=== PATIENT | female | born 1950 | race Caucasian/White ===

== ENCOUNTER 2018-03-29 23:12 | Emergency (ER) | payer SELFPAY ==
[~2018-03-29 23:12] MED LIST changes: -OMEP-137 PO; -PRED-1 PO
[2018-03-29] MEDS ORDERED: OMEP-137 PO (23:21)
[2018-03-29] MEDS ORDERED: LORazepam 2 MG/ML VIAL IVP ONE ×2 (23:25)
--- NOTE | 2018-03-29 23:55 | EKG ---
FACILITY: [facility] PATIENT NAME: EMMA CABRERA : [id number] MR: [id number] V: [id number] EXAM DATE: ORDERING PHYSICIAN: CUCO BOSWELL TECHNOLOGIST: NABILA Test Reason : DYSPNEA Blood Pressure : / mmHG Vent. Rate : 083 BPM Atrial Rate : 083 BPM P-R Int : 148 ms QRS Dur : 100 ms QT Int : 404 ms P-R-T Axes : 007 140 029 degrees QTc Int : 474 ms Normal sinus rhythm Incomplete right bundle branch block Nonspecific ST abnormality Abnormal ECG When compared with ECG of 01-SEP-2016 11:33, No significant change was found Confirmed by Scooter Salcido ([id number]) on 03/30/2018 6:40:39 AM Referred By: Confirmed By:Scooter Hernandez
[2018-03-30 00:20] LABS: PLATELET COUNT, AUTOMATED 231 K/uL (150-450)
--- NOTE | 2018-03-30 00:20 | ER Report ---
History and Physical Time Seen By MD: 23:12 Hx. of Stated Complaint: PATIENT STATES SHE WAS HAVING A DIFFICULT TIME BREATHING WITH HOT FLASHES AND TREMORS HPI/ROS CHIEF COMPLAINT: Tremor and shaking sudden onset 3 hours prior to arrival, difficulty breathing HISTORY OF PRESENT ILLNESS: 67-year-old female brought in by EMS from home with difficulty breathing. She has obvious tremor of both of her upper extremities. Patient has no significant past medical history. Patient denies chest pain. She denies fever, chills or productive cough. She denies leg swelling or calf pain. Patient denies nausea or vomiting. Patient denies history of anxiety or panic attack. REVIEW OF SYSTEMS: Respiratory: As above Cardiovascular: No chest pain, no palpitations. Gastrointestinal: No vomiting, no abdominal pain. Musculoskeletal: No back pain. Allergies: Coded Allergies: Shellfish (Verified Allergy, Severe, THROAT SWELLING, EYE SWELLING, DIFFICULTY BREATHING, NAUSEA, 03/30/18) aspirin (Verified Allergy, Mild, NAUSEA, 03/30/18) Uncoded Allergies: POLIO VACCINE (Allergy, Intermediate, FEVER, NECK & ARM SWELLING, NAUSEA, 04/05/09) Home Meds Active Scripts Prednisone 10 Mg Tab (PREDNISONE 10 MG TAB) 10 Mg Tablet, 10 MG PO QDAY PRN for reduce lung inflammation, #9 2 tabs daily for 3 days 1 tab daily for 3 days Prov:CUCO BOSWELL DO 03/30/18 Reported Medications Omeprazole (OMEPRAZOLE) 20 Mg Tablet.dr, 20 MG PO QDAY, TAB 03/29/18 Discontinued Scripts Amoxicillin/Pot Clav 875-125 Mg Tab (AUGMENTIN 875-125 TABLET) 1 Each Tablet, 1 TAB PO Q12H for 10 Days, TAB Prov:ANDREWS SWANSON NP 09/01/16 Past Medical/Surgical History Occasional GERD Hx Smoking: Yes Smoking Status: Former Smoker Exposure to Second Hand Smoke?: No Hx Substance Use Disorder: No Hx Alcohol Use: No Constitutional Vital Sign - Last 24 Hours 03/29/18 03/29/18 03/29/18 03/29/18 23:12 23:15 23:30 23:32 Temp 98.5 Pulse 87 Resp 20 B/P (MAP) 168/149 (155) 132/49 (76) Pulse Ox 91 O2 Delivery Nasal Cannula O2 Flow Rate 2.0 03/29/18 03/30/18 23:42 00:58 Pulse 83 85 Resp 16 B/P (MAP) 132/82 (99) Pulse Ox 91 95 O2 Delivery Room Air Physical Exam Vital signs stable, afebrile, pulse ox 88-89% on room air, requiring 2 L to maintain saturations in the low 90s General Appearance: The patient is alert, has no immediate need for airway protection and no current signs of toxicity. Mild distress, repetitive tremor in upper extremities HEENT: Pupils equal and round no injection. TMs normal, oropharynx with mild erythema, no exudate or petechiae Respiratory: Chest is non tender, lungs are clear to auscultation. No expiratory wheezing. Rales or rhonchi noted Cardiac: regular rate and rhythm Gastrointestinal: Abdomen is soft and non tender, no masses, bowel sounds normal. Musculoskeletal: Neck: Neck is supple and non tender. No lymphadenopathy, no JVD Extremities have full range of motion and are non tender. No edema, no calf tenderness Skin: No rashes or lesions. DIFFERENTIAL DIAGNOSIS: After history and physical exam differential diagnosis was considered for shortness of breath including but not limited to pulmonary infectious process, COPD, asthma, pulmonary embolus and congestive heart failure. Medical Decision Making Data Points Result Diagram: 03/30/18 0003 03/30/18 0003 Laboratory Hematology Test 03/30/18 00:03 Red Blood Count 5.10 M/uL (4.17-5.56) Mean Corpuscular Volume 90.9 fL (80.0-96.0) Mean Corpuscular Hemoglobin 30.6 pg (26.0-33.0) Mean Corpuscular Hemoglobin Concent 33.7 g/dL (32.0-36.0) Red Cell Distribution Width 13.5 % (11.5-14.5) Mean Platelet Volume 8.4 fL (7.2-11.1) Neutrophils (%) (Auto) 63.7 % (39.4-72.5) Lymphocytes (%) (Auto) 26.3 % (17.6-49.6) Monocytes (%) (Auto) 7.2 % (4.1-12.4) Eosinophils (%) (Auto) 2.0 % (0.4-6.7) Basophils (%) (Auto) 0.8 % (0.3-1.4) Nucleated RBC Relative Count (auto) 0.0 /100WBC Neutrophils # (Auto) 4.8 K/uL (2.0-7.4) Lymphocytes # (Auto) 2.0 K/uL (1.3-3.6) Monocytes # (Auto) 0.5 K/uL (0.3-1.0) Eosinophils # (Auto) 0.1 K/uL (0.0-0.5) Basophils # (Auto) 0.1 K/uL (0.0-0.1) Nucleated RBC Absolute Count (auto) 0.00 K/uL D-Dimer Quantitative (PE/DVT) 0.32 ug/ml (0-0.50) Sodium Level 137 mmol/L (137-145) Potassium Level 3.6 mmol/L (3.5-5.0) Chloride Level 105 mmol/L (98-107) Carbon Dioxide Level 22 mmol/L (22-31) Blood Urea Nitrogen 16 mg/dl (7-18) Creatinine 0.90 mg/dl (0.52-1.04) Glomerular Filtration Rate Calc > 60.0 Random Glucose 118 mg/dl (75-110) Lactate 1.3 mmol/L (0.7-2.1) Calcium Level 9.8 mg/dl (8.4-10.2) Total Bilirubin 0.7 mg/dl (0.2-1.3) Aspartate Amino Transf (AST/SGOT) 21 U/L (0-35) Alanine Aminotransferase (ALT/SGPT) 31 U/L (0-56) Alkaline Phosphatase 87 U/L (0-126) Troponin I < 0.012 ng/ml B-Type Natriuretic Peptide < 5 pg/ml (0-100) Total Protein 6.9 g/dl (6.3-8.2) Albumin 3.7 g/dl (3.5-5.0) Chemistry Test 03/30/18 00:03 White Blood Count 7.6 k/uL (4.5-11.0) Red Blood Count 5.10 M/uL (4.17-5.56) Hemoglobin 15.6 g/dL (12.0-16.0) Hematocrit 46.3 % (34.0-47.0) Mean Corpuscular Volume 90.9 fL (80.0-96.0) Mean Corpuscular Hemoglobin 30.6 pg (26.0-33.0) Mean Corpuscular Hemoglobin Concent 33.7 g/dL (32.0-36.0) Red Cell Distribution Width 13.5 % (11.5-14.5) Platelet Count 231 K/uL (150-450) Mean Platelet Volume 8.4 fL (7.2-11.1) Neutrophils (%) (Auto) 63.7 % (39.4-72.5) Lymphocytes (%) (Auto) 26.3 % (17.6-49.6) Monocytes (%) (Auto) 7.2 % (4.1-12.4) Eosinophils (%) (Auto) 2.0 % (0.4-6.7) Basophils (%) (Auto) 0.8 % (0.3-1.4) Nucleated RBC Relative Count (auto) 0.0 /100WBC Neutrophils # (Auto) 4.8 K/uL (2.0-7.4) Lymphocytes # (Auto) 2.0 K/uL (1.3-3.6) Monocytes # (Auto) 0.5 K/uL (0.3-1.0) Eosinophils # (Auto) 0.1 K/uL (0.0-0.5) Basophils # (Auto) 0.1 K/uL (0.0-0.1) Nucleated RBC Absolute Count (auto) 0.00 K/uL D-Dimer Quantitative (PE/DVT) 0.32 ug/ml (0-0.50) Glomerular Filtration Rate Calc > 60.0 Lactate 1.3 mmol/L (0.7-2.1) Calcium Level 9.8 mg/dl (8.4-10.2) Total Bilirubin 0.7 mg/dl (0.2-1.3) Aspartate Amino Transf (AST/SGOT) 21 U/L (0-35) Alanine Aminotransferase (ALT/SGPT) 31 U/L (0-56) Alkaline Phosphatase 87 U/L (0-126) Troponin I < 0.012 ng/ml B-Type Natriuretic Peptide < 5 pg/ml (0-100) Total Protein 6.9 g/dl (6.3-8.2) Albumin 3.7 g/dl (3.5-5.0) Coagulation Test 03/30/18 00:03 D-Dimer Quantitative (PE/DVT) 0.32 ug/ml EKG/Imaging EKG Interpretation 12 lead EK Rhythm: normal sinus rhythm [place]: normal QRS: Incomplete right bundle branch block with RVH ST segments: Nonspecific ST abnormality, comparison to previous EKG dated 09/01/16, no significant change Imaging X-ray: Two-view chest x-ray was obtained. I viewed the images myself on the PACS system. My interpretation of the images is: No infiltrate, no effusion, normal mediastinum. The radiologist interpretation had no clinically significant variation from this interpretation. ED Course/Re-evaluation Clinical Indication for ER IV: IV Access ED Course Patient was admitted to an examination room. H&P was done. The differential diagnoses was considered. On clinical examination present with shortness of breath. She's better after nebulizer treatment in route by EMS. On arrival. She has continues to have tremor and shaking. Her EKG and diagnostic studies are unremarkable. She's given Ativan for her anxiety. Her tremor stops and she feels much better. She's discharged home and advised to follow-up with her primary care physician. Patient states she is unable to afford primary care physician or insurance. It cost too much. Decision to Disposition Date: Mar 30, 2018 Decision to Disposition Time: 00:50 Depart Departure Latest Vital Signs Vital Signs Date Time Temp Pulse Resp B/P (MAP) Pulse Ox O2 Delivery O2 Flow Rate FiO2 03/30/18 00:58 85 16 132/82 (99) 95 Room Air 03/29/18 23:32 2.0 03/29/18 23:12 98.5 Impression: Primary Impression: Dyspnea Additional Impression: Anxiety Condition: Improved Disposition: HOME OR SELF-CARE Referrals: JOHNNIE SHANE MD, FARRUKH MD Patient Instructions: Anxiety (ED), Dyspnea (ED) Additional Instructions: Follow-up with primary care if unimproved in 2-5 days Problem Qualifiers Primary Impression: Dyspnea Dyspnea type: unspecified Qualified Codes: R06.00 - Dyspnea, unspecified CUCO BOSWELL DO Mar 30, 2018 00:20
--- NOTE | 2018-03-30 00:52 | RADIOLOGY IMAGING REPORT ---
FACILITY: [facility] - [place] PATIENT NAME: Michelle Head : 1950 MR: [id number] V: [id number] EXAM DATE: ORDERING PHYSICIAN: CUCO BOSWELL TECHNOLOGIST: Location: [facility] - [place] Patient: Michelle Head : 1950 Visit/Account:[id number] Date of Sevice: 03/29/2018 CHEST PA AND LAT HISTORY: Respiratory distress. COMPARISON: 09/01/2016. FINDINGS: Lines/tubes: None. Lungs/pleura: Negative. Heart: Negative. Mediastinum: Negative. Bony structures/body wall: Negative. IMPRESSION: No acute cardiopulmonary process. Report Dictated By: Quan Leonardo MD at 03/30/2018 12:46 AM Report E-Signed By: Quan Leonardo MD at 03/30/2018 12:48 AM WSN:[id number]
[2018-03-30 00:58] VITALS: BP 132/82
[2018-03-30] MEDS ORDERED: PRED-1 PO (20:35)
== END 2018-03-30 01:30 | disposition home or self-care (01) ==
LOC: ER 23:54
DX: R06.00 Dyspnea, unspecified (principal); F41.9 Anxiety disorder, unspecified; R94.31 Abnormal electrocardiogram [ECG] [EKG]
CPT/HCPCS: 36415; 71046; 83605; 83880; 84484; 85025; 85379; 93005; 96374; 99284; J2060; 82040; 82247; 82310; 82374; 82435; 82565; 82947; 84075; 84132; 84155; 84295; 84450; 84460; 84520

== ENCOUNTER → 2018-03-29 | Outpatient (CLI) | payer SELFPAY ==
[~2018-03-29] MED LIST: ACE325 PO; ALB17R INH; AMOX-559 PO; AZI250 PO; CYCL10TA29 PO; OMEP-137 PO; OMEP40CA45 PO; OXYC-865 PO; PRE20 PO; PRED-1 PO; PROC5L PO; ROBC PO
== END ==
LOC: AMB 22:49
PROVIDERS: ATTEND Nurse Practitioner
DX: R06.02 Shortness of breath (principal); R25.1 Tremor, unspecified
CPT/HCPCS: A0425; A0427

== ENCOUNTER 2018-03-30 19:16 | Emergency (ER) | payer SELFPAY ==
[~2018-03-30 19:16] MED LIST changes: -PRED-1 PO
--- NOTE | 2018-03-30 19:23 | ER Report ---
History and Physical Time Seen By MD: 19:23 HPI/ROS CHIEF COMPLAINT: Shortness of breath, history of asthma HISTORY OF PRESENT ILLNESS: 67-year-old female brought in by EMS from home with respiratory difficulty. Patient states she has a history of asthma. She was seen here approximately 24 hours ago with similar symptoms. At that time an e xtensive workup was done with a negative chest x-ray, EKG, d-dimer and troponin, as well as BMP. She was improved after nebulizer by EMS in route. Her lungs are clear to auscultation. Her saturations were normal. Patient states she went home and did fine throughout the day. She became more short of breath this evening. She has an inhaler. She attempted using without improvement. She called EMS to come pick her up. She received 2 albuterol nebs in route is breathing fine on arrival here. EMS on arrival notes that her saturation was in the low 90s. She has tremors of her arms consistent with anxiety or panic attack from her last presentation. She notes she has a little dry cough but no production of sputum or fever. She notes no rhinitis. She notes no sore throat. She notes no chest pain. She notes no leg swelling other than she notes some mild swelling of her right ankle which is chronic for her. REVIEW OF SYSTEMS: Respiratory: As above Cardiovascular: No chest pain, no palpitations. Gastrointestinal: No vomiting, no abdominal pain. Musculoskeletal: No back pain. Allergies: Coded Allergies: Shellfish (Verified Allergy, Severe, THROAT SWELLING, EYE SWELLING, DIFFICULTY BREATHING, NAUSEA, 03/30/18) aspirin (Verified Allergy, Mild, NAUSEA, 03/30/18) Uncoded Allergies: POLIO VACCINE (Allergy, Intermediate, FEVER, NECK & ARM SWELLING, NAUSEA, 04/05/09) Home Meds Active Scripts Prednisone 10 Mg Tab (PREDNISONE 10 MG TAB) 10 Mg Tablet, 10 MG PO QDAY PRN for reduce lung inflammation, #9 2 tabs daily for 3 days 1 tab daily for 3 days Prov:CUCO BOSWELL DO 03/30/18 Reported Medications Omeprazole (OMEPRAZOLE) 20 Mg Tablet.dr, 20 MG PO QDAY, TAB 03/29/18 Discontinued Scripts Amoxicillin/Pot Clav 875-125 Mg Tab (AUGMENTIN 875-125 TABLET) 1 Each Tablet, 1 TAB PO Q12H for 10 Days, TAB Prov:ANDREWS SWANSON NP 09/01/16 Past Medical/Surgical History Past medical history: GERD, asthma. Past surgical history: Hysterectomy. Reviewed Nurses Notes: Yes Old Medical Records Reviewed: Yes Hx Smoking: Yes Smoking Status: Former Smoker Exposure to Second Hand Smoke?: No Hx Substance Use Disorder: No Hx Alcohol Use: No Constitutional Vital Sign - Last 24 Hours 03/30/18 03/30/18 03/30/18 03/30/18 19:21 19:21 19:30 19:31 Temp 97.5 Pulse 101 101 Resp 20 14 B/P (MAP) 146/85 146/85 (105) 128/66 (86) Pulse Ox 96 92 O2 Delivery Room Air 03/30/18 03/30/18 03/30/18 03/30/18 19:46 20:00 20:01 20:16 Pulse 105 100 86 Resp 11 5 15 B/P (MAP) 118/76 (90) Pulse Ox 89 87 92 03/30/18 03/30/18 03/30/18 20:30 20:31 20:46 Pulse 90 88 Resp 17 13 B/P (MAP) 131/70 (90) Pulse Ox 90 90 Physical Exam General Appearance: The patient is alert, has no immediate need for airway protection and no current signs of toxicity. Vital signs stable, afebrile, pulse ox normal HEENT: Pupils equal and round no injection. TMs normal, oropharynx with mild erythema, no exudate or petechiae Respiratory: Chest is non tender, lungs are clear to auscultation. No wheezing or rales after albuterol nebs 2 by EMS Cardiac: regular rate and rhythm, no murmur Gastrointestinal: Abdomen is soft and non tender, no masses, bowel sounds normal. Musculoskeletal: Neck: Neck is supple and non tender. No lymphadenopathy, no JVD Extremities have full range of motion and are non tender. Skin: No rashes or lesions. DIFFERENTIAL DIAGNOSIS: After history and physical exam differential diagnosis was considered for shortness of breath including but not limited to pulmonary infectious process, COPD, asthma, pulmonary embolus and congestive heart fa ilure. Medical Decision Making Data Points Result Diagram: 03/30/18192703/30/181927 Laboratory Hematology Test 03/30/18 19:28 Red Blood Count 5.22 M/uL (4.17-5.56) Mean Corpuscular Volume 90.6 fL (80.0-96.0) Mean Corpuscular Hemoglobin 31.0 pg (26.0-33.0) Mean Corpuscular Hemoglobin Concent 34.2 g/dL (32.0-36.0) Red Cell Distribution Width 13.5 % (11.5-14.5) Mean Platelet Volume 8.6 fL (7.2-11.1) Neutrophils (%) (Auto) 62.8 % (39.4-72.5) Lymphocytes (%) (Auto) 26.2 % (17.6-49.6) Monocytes (%) (Auto) 7.8 % (4.1-12.4) Eosinophils (%) (Auto) 2.0 % (0.4-6.7) Basophils (%) (Auto) 1.2 % (0.3-1.4) Nucleated RBC Relative Count (auto) 0.1 /100WBC Neutrophils # (Auto) 5.2 K/uL (2.0-7.4) Lymphocytes # (Auto) 2.2 K/uL (1.3-3.6) Monocytes # (Auto) 0.7 K/uL (0.3-1.0) Eosinophils # (Auto) 0.2 K/uL (0.0-0.5) Basophils # (Auto) 0.1 K/uL (0.0-0.1) Nucleated RBC Absolute Count (auto) 0.01 K/uL D-Dimer Quantitative (PE/DVT) 0.39 ug/ml (0-0.50) Sodium Level 137 mmol/L (137-145) Potassium Level 3.8 mmol/L (3.5-5.0) Chloride Level 106 mmol/L (98-107) Carbon Dioxide Level 23 mmol/L (22-31) Blood Urea Nitrogen 17 mg/dl (7-18) Creatinine 1.10 mg/dl (0.52-1.04) Glomerular Filtration Rate Calc 49.2 Random Glucose 130 mg/dl (75-110) Calcium Level 9.9 mg/dl (8.4-10.2) Total Bilirubin 0.7 mg/dl (0.2-1.3) Aspartate Amino Transf (AST/SGOT) 24 U/L (0-35) Alanine Aminotransferase (ALT/SGPT) 30 U/L (0-56) Alkaline Phosphatase 93 U/L (0-126) Troponin I < 0.012 ng/ml B-Type Natriuretic Peptide 9 pg/ml (0-100) Total Protein 7.3 g/dl (6.3-8.2) Albumin 4.0 g/dl (3.5-5.0) Chemistry Test 03/30/18 19:28 White Blood Count 8.3 k/uL (4.5-11.0) Red Blood Count 5.22 M/uL (4.17-5.56) Hemoglobin 16.2 g/dL (12.0-16.0) Hematocrit 47.3 % (34.0-47.0) Mean Corpuscular Volume 90.6 fL (80.0-96.0) Mean Corpuscular Hemoglobin 31.0 pg (26.0-33.0) Mean Corpuscular Hemoglobin Concent 34.2 g/dL (32.0-36.0) Red Cell Distribution Width 13.5 % (11.5-14.5) Platelet Count 245 K/uL (150-450) Mean Platelet Volume 8.6 fL (7.2-11.1) Neutrophils (%) (Auto) 62.8 % (39.4-72.5) Lymphocytes (%) (Auto) 26.2 % (17.6-49.6) Monocytes (%) (Auto) 7.8 % (4.1-12.4) Eosinophils (%) (Auto) 2.0 % (0.4-6.7) Basophils (%) (Auto) 1.2 % (0.3-1.4) Nucleated RBC Relative Count (auto) 0.1 /100WBC Neutrophils # (Auto) 5.2 K/uL (2.0-7.4) Lymphocytes # (Auto) 2.2 K/uL (1.3-3.6) Monocytes # (Auto) 0.7 K/uL (0.3-1.0) Eosinophils # (Auto) 0.2 K/uL (0.0-0.5) Basophils # (Auto) 0.1 K/uL (0.0-0.1) Nucleated RBC Absolute Count (auto) 0.01 K/uL D-Dimer Quantitative (PE/DVT) 0.39 ug/ml (0-0.50) Glomerular Filtration Rate Calc 49.2 Calcium Level 9.9 mg/dl (8.4-10.2) Total Bilirubin 0.7 mg/dl (0.2-1.3) Aspartate Amino Transf (AST/SGOT) 24 U/L (0-35) Alanine Aminotransferase (ALT/SGPT) 30 U/L (0-56) Alkaline Phosphatase 93 U/L (0-126) Troponin I < 0.012 ng/ml B-Type Natriuretic Peptide 9 pg/ml (0-100) Total Protein 7.3 g/dl (6.3-8.2) Albumin 4.0 g/dl (3.5-5.0) Coagulation Test 03/30/18 19:28 D-Dimer Quantitative (PE/DVT) 0.39 ug/ml EKG/Imaging EKG Interpretation 12 lead EK Rhythm: normal sinus rhythm with right bundle branch block [place]: normal QRS: normal ST segments: Nonspecific ST segment and round. No change when compared with previous EKGs dated 03/29/18 and 09/01/16 Imaging X-ray: Single view chest x-ray was obtained. I viewed the images myself on the PACS system. My interpretation of the images is: No infiltrate, no effusion, normal mediastinum. The radiologist interpretation had no clinically sign ificant variation from this interpretation. ED Course/Re-evaluation Clinical Indication for ER IV: IV Access ED Course Patient was admitted to an examination room. H&P was done. The differential diagnoses was considered. Patient with similar presentation to last evening. She does have a component of anxiety. I think she has reactive airways disease. It is probably triggered by her GERD. She'll be discharged home with a refill inhaler and a prednisone taper. She is advised to follow-up with her primary care if unimproved in 3-5 days. Decision to Disposition Date: Mar 30, 2018 Decision to Disposition Time: 20:30 Depart Departure Latest Vital Signs Vital Signs Date Time Temp Pulse Resp B/P (MAP) Pulse Ox O2 Delivery O2 Flow Rate FiO2 03/30/18 20:46 88 13 90 03/30/18 20:30 131/70 (90) 03/30/18 19:21 97.5 Room Air Impression: Primary Impression: Asthma exacerbation Additional Impressions: Dyspnea History of gastroesophageal reflux (GERD) Condition: Improved Disposition: HOME OR SELF-CARE Referrals: JOHNNIE SHANE MD, FARRUKH MD New Scripts Prednisone 10 Mg Tab (PREDNISONE 10 MG TAB) 10 Mg Tablet 10 MG PO QDAY PRN for reduce lung inflammation, #9 2 tabs daily for 3 days 1 tab daily for 3 days Prov: CUCO BOSWELL DO 03/30/18 Patient Instructions: Asthma (ED) Additional Instructions: Follow-up with your primary care if unimproved in 2-3 days Problem Qualifiers Primary Impression: Asthma exacerbation Asthma severity: mild Asthma persistence: intermittent Qualified Codes: J45.21 - Mild intermittent asthma with (acute) exacerbation Additional Impressions: Dyspnea Dyspnea type: unspecified Qualified Codes: R06.00 - Dyspnea, unspecified CUCO BOSWELL DO Mar 30, 2018 19:23
[2018-03-30] MEDS ORDERED: methylPREDNIS SUCC 125 MG/2ML IVP ONE (19:25)
[2018-03-30 19:45] LABS: PLATELET COUNT, AUTOMATED 245 K/uL (150-450)
[2018-03-30 20:30] VITALS: BP 131/70
[2018-03-30] MEDS ORDERED: ALBUTEROL 8 GM INHALER INH ONE (20:30)
--- NOTE | 2018-03-30 20:30 | RADIOLOGY IMAGING REPORT ---
FACILITY: [facility] - [place] PATIENT NAME: Michelle Head : 1950 MR: [id number] V: [id number] EXAM DATE: ORDERING PHYSICIAN: CUCO BOSWELL TECHNOLOGIST: Location: [facility] - [place] Patient: Michelle Head : 1950 Visit/Account:[id number] Date of Sevice: 03/30/2018 Examination: CHEST SINGLE AP Comparison: Earlier the same day. History: Respiratory distress. Findings: Mild prominence of the interstitial markings as on the prior studies. No new or enlarging c onsolidation or definite evidence of acute peribronchial inflammation. No pneumothorax, edema, or eff usion. Cardiac and hilar contour size is normal. Osseous structures are intact. IMPRESSION: Unchanged chest with no evidence of acute cardiopulmonary disease. Report Dictated By: Ronal White MD at 03/30/2018 8:18 PM Report E-Signed By: Ronal White MD at 03/30/2018 8:26 PM [id number]
[2018-03-30] MEDS ORDERED: PRED-1 PO (20:35)
--- NOTE | 2018-03-30 20:39 | EKG ---
FACILITY: [facility] PATIENT NAME: EMMA CABRERA : [id number] MR: [id number] V: [id number] EXAM DATE: ORDERING PHYSICIAN: CUCO BOSWELL TECHNOLOGIST: NABILA Test Reason : DYSPNEA Blood Pressure : / mmHG Vent. Rate : 108 BPM Atrial Rate : 108 BPM P-R Int : 150 ms QRS Dur : 090 ms QT Int : 364 ms P-R-T Axes : 052 198 052 degrees QTc Int : 487 ms Sinus tachycardia with premature atrial complexes Incomplete RBBB Nonspecific ST abnormality Abnormal ECG Confirmed by LISE WYNNE ([id number]) on 03/31/2018 6:00:08 AM Referred By: Confirmed By:LISE WYNNE
== END 2018-03-30 20:54 | disposition home or self-care (01) ==
LOC: ER 19:23
DX: J45.21 Mild intermittent asthma with (acute) exacerbation (principal); K21.9 Gastro-esophageal reflux disease without esophagitis
CPT/HCPCS: 71045; 83880; 84484; 85025; 85379; 93005; 94640; 96374; 99283; J2930; J3535; 82040; 82247; 82310; 82374; 82435; 82565; 82947; 84075; 84132; 84155; 84295; 84450; 84460; 84520

== ENCOUNTER → 2018-03-30 | Outpatient (CLI) | payer SELFPAY ==
[~2018-03-30] MED LIST changes: +OMEP-137 PO; +PRED-1 PO
== END ==
LOC: AMB 18:52
PROVIDERS: ATTEND Nurse Practitioner
DX: R06.02 Shortness of breath (principal); R51 Headache; R53.1 Weakness
CPT/HCPCS: A0425; A0427

== ENCOUNTER 2018-06-09 21:02 | Inpatient (IN) | payer MEDICARE ==
[~2018-06-09] VITALS: Ht 160 cm; Wt 125.2 kg
[~2018-06-09 21:02] MED LIST changes: -OSE75 PO
--- NOTE | 2018-06-09 21:09 | ER Report ---
History and Physical Time Seen By MD: 21:09 HPI/ROS CHIEF COMPLAINT: weakness, fall HISTORY OF PRESENT ILLNESS: This is a 67 year old female. She has not been feeling well since (4 days) when she developed a cough. She has bee coughing since then, but does not seem worse. Took some cough medicine over the counter over the last few days which has helped. She is a little short of breath. No runny nose or sore throat. She has been very weak and fatigued. Today slept most of the day. Poor appetite with nausea. No abdominal pain. Slight decrease in urination, but no pain with urination. No diarrhea or bowel changes. Trying to drink increased fluids. She was sitting on the edge of her bed and was going to come to the ER, but slid off the bed and hit her head on the bedside table. Did not lose consciousness, hit the left parietal area. Has some neck pain. EMS found her to be hypoxic, and placer her on oxygen, 2LNC and sating 90% now. REVIEW OF SYSTEMS: Constitutional: Having some chills. Eyes: No vision changes. ENT: No sore throat. No congestion. Cardiovascular: No chest pain. Respiratory: As above. Gastrointestinal: As above. Genitourinary: As above. Musculoskeletal: Has some muscle aches. Skin: No rashes. Neurological: Has been having slow chronic increase in tremors. Allergies: Coded Allergies: Shellfish (Verified Allergy, Severe, THROAT SWELLING, EYE SWELLING, DIFFICULTY BREATHING, NAUSEA, 06/09/18) aspirin (Verified Allergy, Mild, NAUSEA, 06/09/18) Uncoded Allergies: POLIO VACCINE (Allergy, Intermediate, FEVER, NECK & ARM SWELLING, NAUSEA, 04/05/09) Home Meds Discontinued Reported Medications Omeprazole (OMEPRAZOLE) 20 Mg Tablet.dr, 20 MG PO QDAY, TAB 03/29/18 Discontinued Scripts Prednisone 10 Mg Tab (PREDNISONE 10 MG TAB) 10 Mg Tablet, 10 MG PO QDAY PRN for reduce lung inflammation, #9 2 tabs daily for 3 days 1 tab daily for 3 days Prov:CUCO BOSWELL DO 03/30/18 Reviewed Nurses Notes: Yes Hx Smoking: Yes Smoking Status: Former Smoker Exposure to Second Hand Smoke?: No Hx Substance Use Disorder: No Hx Alcohol Use: No Constitutional Vital Sign - Last 24 Hours 06/09/18 06/09/18 06/09/18 06/09/18 21:02 21:04 21:05 21:17 Temp 100.5 Pulse ??? 84 93 Resp 19 B/P (MAP) 125/72 125/72 (89) Pulse Ox 93 93 O2 Delivery Nasal Cannula 06/09/18 06/09/18 06/09/18 06/09/18 21:27 21:30 21:32 21:47 Pulse 81 ??? Resp 13 B/P (MAP) 97/44 (61) Pulse Ox 90 O2 Flow Rate 2.0 06/09/18 06/09/18 06/09/18 06/09/18 22:00 22:02 22:17 22:32 Pulse 87 87 80 Resp 23 31 B/P (MAP) 105/68 (80) Pulse Ox 86 87 89 06/09/18 06/09/18 06/09/18 06/09/18 22:47 22:51 22:56 23:00 Pulse ??? 83 Resp 14 B/P (MAP) 105/49 (67) ???/??? (1665) Pulse Ox 89 06/09/18 06/09/18 06/09/18 06/09/18 23:11 23:24 23:26 23:30 Pulse ??? 78 Resp 19 B/P (MAP) 114/64 (81) 118/56 (76) Pulse Ox 91 06/09/18 06/09/18 06/10/18 06/10/18 23:41 23:56 00:00 00:11 Pulse 78 78 78 Resp 22 28 15 B/P (MAP) 113/61 (78) Pulse Ox 92 90 87 06/10/18 06/10/18 06/10/18 06/10/18 00:26 00:31 00:46 01:00 Pulse 73 78 84 Resp 6 26 10 B/P (MAP) 97/57 (70) Pulse Ox 88 89 86 06/10/18 06/10/18 06/10/18 06/10/18 01:01 01:16 01:30 01:31 Pulse 81 75 75 Resp 29 27 30 B/P (MAP) 106/37 (60) Pulse Ox 91 90 90 Intake and Output0 06/09/18 06/09/18 06/10/18 15:00 23:00 07:00 Intake Total 1000 ml Balance 1000 ml Physical Exam General Appearance: The patient is alert. No acute distress. Eyes: Pupils are equal, round. No pallor, injection or icterus. ENT: Mucous membranes are dry. Normal oral mucosa. Posterior oropharynx is normal. Neck: Supple, some anterior neck tenderness. Cervical collar in place. Respiratory: Lungs diminished throughout. No wheezing, rales or rhonchi noted. Cardiovascular: Regular rate and rhythm. No murmurs, gallops or rubs. Normal capillary refill. Gastrointestinal: Abdomen is soft and non tender. Nondistended. Normal active bowel sounds. Neurological: Alert and oriented x3. No focal neurologic deficits. Having some tremors intermittently. Generalized weakness. Skin: Warm and dry. Musculoskeletal: Extremities are nontender. No tenderness in palpation of the cervical, thoracic and lumbar spine. DIFFERENTIAL DIAGNOSIS: After history and physical exam, differential diagnosis was considered for a patient with diffuse symptoms that started with cough, now with significant weakness, short of breath, hypoxia, and some nausea. Fall with head and neck pain. Medical Decision Making Data Points Result Diagram: 06/09/18210206/09/182102 Laboratory Hematology Test 06/09/18 21:03 06/09/18 21:13 06/09/18 22:54 Red Blood Count 5.22 M/uL (4.17-5.56) Mean Corpuscular Volume 90.2 fL (80.0-96.0) Mean Corpuscular Hemoglobin 30.7 pg (26.0-33.0) Mean Corpuscular Hemoglobin Concent 34.0 g/dL (32.0-36.0) Red Cell Distribution Width 13.6 % (11.5-14.5) Mean Platelet Volume 9.0 fL (7.2-11.1) Neutrophils (%) (Auto) 76.2 % (39.4-72.5) Lymphocytes (%) (Auto) 12.4 % (17.6-49.6) Monocytes (%) (Auto) 10.9 % (4.1-12.4) Eosinophils (%) (Auto) 0.1 % (0.4-6.7) Basophils (%) (Auto) 0.4 % (0.3-1.4) Nucleated RBC Relative Count (auto) 0.4 /100WBC Neutrophils # (Auto) 2.6 K/uL (2.0-7.4) Lymphocytes # (Auto) 0.4 K/uL (1.3-3.6) Monocytes # (Auto) 0.4 K/uL (0.3-1.0) Eosinophils # (Auto) 0.0 K/uL (0.0-0.5) Basophils # (Auto) 0.0 K/uL (0.0-0.1) Nucleated RBC Absolute Count (auto) 0.01 K/uL D-Dimer Quantitative (PE/DVT) 0.76 ug/ml (0-0.50) Sodium Level 133 mmol/L (137-145) Potassium Level 3.8 mmol/L (3.5-5.0) Chloride Level 106 mmol/L (98-107) Carbon Dioxide Level 20 mmol/L (22-31) Blood Urea Nitrogen 15 mg/dl (7-18) Creatinine 1.30 mg/dl (0.52-1.04) Glomerular Filtration Rate Calc 40.6 Random Glucose 98 mg/dl (75-110) Lactate 1.0 mmol/L (0.7-2.1) Calcium Level 8.7 mg/dl (8.4-10.2) Magnesium Level 2.0 mg/dl (1.7-2.2) Total Bilirubin 0.6 mg/dl (0.2-1.3) Aspartate Amino Transf (AST/SGOT) 84 U/L (0-35) Alanine Aminotransferase (ALT/SGPT) 57 U/L (0-56) Alkaline Phosphatase 79 U/L (0-126) Troponin I < 0.012 ng/ml Total Protein 6.9 g/dl (6.3-8.2) Albumin 3.8 g/dl (3.5-5.0) Amylase Level 64 U/L (0-110) Lipase 198 U/L (23-300) Influenza Virus Type A (PCR) Positive (NEGATIVE) Influenza Virus Type B (PCR) Negative (NEGATIVE) Urine Color Yellow Urine Clarity Slightly-cloudy Urine pH 5.0 pH (4.8-9.5) Urine Specific [place] 1.015 Urine Protein Negative mg/dL (NEGATIVE) Urine Glucose (UA) Negative mg/dL (NEGATIVE) Urine Ketones Trace mg/dL (NEGATIVE) Urine Blood Negative (NEGATIVE) Urine Nitrite Negative (NEGATIVE) Urine Bilirubin Negative (NEGATIVE) Urine Urobilinogen Negative mg/dL (0.2-1.9) Urine Leukocyte Esterase Large (NEGATIVE) Urine RBC 2 /HPF (0-2/HPF) Urine WBC 19 /HPF (0-5/HPF) Urine Squamous Epithelial Cells Many /LPF (</=FEW) Urine Transitional Epithelial Cells Few /LPF (NONE-FEW) Urine Bacteria Negative /HPF (NONE-FEW) Urine Mucus None /HPF (NONE-FEW) Chemistry Test 06/09/18 21:03 06/09/18 21:13 06/09/18 22:54 White Blood Count 3.5 k/uL (4.5-11.0) Red Blood Count 5.22 M/uL (4.17-5.56) Hemoglobin 16.0 g/dL (12.0-16.0) Hematocrit 47.1 % (34.0-47.0) Mean Corpuscular Volume 90.2 fL (80.0-96.0) Mean Corpuscular Hemoglobin 30.7 pg (26.0-33.0) Mean Corpuscular Hemoglobin Concent 34.0 g/dL (32.0-36.0) Red Cell Distribution Width 13.6 % (11.5-14.5) Platelet Count 154 K/uL (150-450) Mean Platelet Volume 9.0 fL (7.2-11.1) Neutrophils (%) (Auto) 76.2 % (39.4-72.5) Lymphocytes (%) (Auto) 12.4 % (17.6-49.6) Monocytes (%) (Auto) 10.9 % (4.1-12.4) Eosinophils (%) (Auto) 0.1 % (0.4-6.7) Basophils (%) (Auto) 0.4 % (0.3-1.4) Nucleated RBC Relative Count (auto) 0.4 /100WBC Neutrophils # (Auto) 2.6 K/uL (2.0-7.4) Lymphocytes # (Auto) 0.4 K/uL (1.3-3.6) Monocytes # (Auto) 0.4 K/uL (0.3-1.0) Eosinophils # (Auto) 0.0 K/uL (0.0-0.5) Basophils # (Auto) 0.0 K/uL (0.0-0.1) Nucleated RBC Absolute Count (auto) 0.01 K/uL D-Dimer Quantitative (PE/DVT) 0.76 ug/ml (0-0.50) Glomerular Filtration Rate Calc 40.6 Lactate 1.0 mmol/L (0.7-2.1) Calcium Level 8.7 mg/dl (8.4-10.2) Magnesium Level 2.0 mg/dl (1.7-2.2) Total Bilirubin 0.6 mg/dl (0.2-1.3) Aspartate Amino Transf (AST/SGOT) 84 U/L (0-35) Alanine Aminotransferase (ALT/SGPT) 57 U/L (0-56) Alkaline Phosphatase 79 U/L (0-126) Troponin I < 0.012 ng/ml Total Protein 6.9 g/dl (6.3-8.2) Albumin 3.8 g/dl (3.5-5.0) Amylase Level 64 U/L (0-110) Lipase 198 U/L (23-300) Influenza Virus Type A (PCR) Positive (NEGATIVE) Influenza Virus Type B (PCR) Negative (NEGATIVE) Urine Color Yellow Urine Clarity Slightly-cloudy Urine pH 5.0 pH (4.8-9.5) Urine Specific [place] 1.015 Urine Protein Negative mg/dL (NEGATIVE) Urine Glucose (UA) Negative mg/dL (NEGATIVE) Urine Ketones Trace mg/dL (NEGATIVE) Urine Blood Negative (NEGATIVE) Urine Nitrite Negative (NEGATIVE) Urine Bilirubin Negative (NEGATIVE) Urine Urobilinogen Negative mg/dL (0.2-1.9) Urine Leukocyte Esterase Large (NEGATIVE) Urine RBC 2 /HPF (0-2/HPF) Urine WBC 19 /HPF (0-5/HPF) Urine Squamous Epithelial Cells Many /LPF (</=FEW) Urine Transitional Epithelial Cells Few /LPF (NONE-FEW) Urine Bacteria Negative /HPF (NONE-FEW) Urine Mucus None /HPF (NONE-FEW) Coagulation Test 06/09/18 21:03 D-Dimer Quantitative (PE/DVT) 0.76 ug/ml Urinalysis Test 06/09/18 22:54 Urine Color Yellow Urine Clarity Slightly-cloudy Urine pH 5.0 pH (4.8-9.5) Urine Specific [place] 1.015 Urine Protein Negative mg/dL (NEGATIVE) Urine Glucose (UA) Negative mg/dL (NEGATIVE) Urine Ketones Trace mg/dL (NEGATIVE) Urine Blood Negative (NEGATIVE) Urine Nitrite Negative (NEGATIVE) Urine Bilirubin Negative (NEGATIVE) Urine Urobilinogen Negative mg/dL (0.2-1.9) Urine Leukocyte Esterase Large (NEGATIVE) Urine RBC 2 /HPF (0-2/HPF) Urine WBC 19 /HPF (0-5/HPF) Urine Squamous Epithelial Cells Many /LPF (</=FEW) Urine Transitional Epithelial Cells Few /LPF (NONE-FEW) Urine Bacteria Negative /HPF (NONE-FEW) Urine Mucus None /HPF (NONE-FEW) EKG/Imaging EKG Interpretation 12 lead EKG: Rhythm: Normal sinus rhythm, rate 81 [place]: normal QRS: normal ST segments: normal Imaging Study: CT scan of the brain without intravenous contrast. Indication: Fall Comparison study: September 01, 2016 Technique: Multiple axial images were obtained through the brain without the use of intravenous contrast. One of the following dose optimization techniques was utilized in the performance of this exam: Automated exposure control; adjustment of the mA and/or kV according to the patient's size; or use of an iterative reconstruction technique. Specific details can be referenced in the facility's radiology CT exam operational policy. The examination demonstrates no evidence of acute intracranial hemorrhage. There is no evidence of extra-axial collection or hydrocephalus. There is no abnormal density identified within the brain parenchyma. There is no evidence of disruption of the peripheral luna-white junction. The bony structures are unremarkable. IMPRESSION:Unremarkable CT scan of the brain without contrast. Report Dictated By: Chirag Patel at 06/09/2018 10:23 PM Study: CT VERTEBRA CERVICAL (NON CON) Indication: Fall COMPARISON STUDIES: none TECHNIQUE: Axial images were obtained from the skull base through the upper thoracic spine without intravenous contrast. Coronal and sagittal reformatted images were obtained from the axial source data. One of the following dose optimization techniques was utilized in the performance of this exam: Automated exposure control; adjustment of the mA and/or kV according to the patient's size; or use of an iterative recons truction technique. Specific details can be referenced in the facility's radiology CT exam operational policy. FINDINGS: Pre-vertebral soft tissues: Negative Alignment: negative Vertebral bodies: Negative Posterior elements: Negative Disc Spaces: Negative Visualized soft tissues anterior neck: Negative Visualized lung / mediastinum: Negative IMPRESSION: Negative for acute fracture or spondylolisthesis. Report Dictated By: Chirag Patel at 06/09/2018 10:24 PM Study: Single portable view of the chest. Indication: Fall Comparison study: March 30, 2018 Technique: Single AP view of the chest demonstrates no evidence of acute infiltrate. There is no evidence of pleural effusion or pneumothorax. The mediastinal, cardiac, and diaphragmatic contours are unremarkable. IMPRESSION: Unremarkable chest. Report Dictated By: Chirag Patel at 06/09/2018 10:[address] PE DATE: 06/09/2018 11:38 PM INDICATION: Hypoxia, short of breath. COMPARISON: Same-day radiograph. TECHNIQUE: Axial CT angiogram was obtained through the chest with intravenous contrast. Sagittal and coronal MPR and MIP coronal reformations were also generated. 75 mL isovue 370. One of the following dose optimization techniques was utilized in the performance of this exam: Automated exposure control; adjustment of the mA and/or kV according to the patient's size; or use of an iterative reconstruction technique. Specific details can be referenced in the facility's radiology CT exam operational policy. FINDINGS: Thyroid / Thoracic Inlet: No visualized thyroid nodule or supraclavicular lymphadenopathy. Pulmonary Arteries: No demonstrated pulmonary embolism. Heart and Aorta: Normal-size heart with no pericardial effusion. Mild mitral annulus calcification. Nonaneurysmal thoracic aorta. Mediastinum and Romy: No lymphadenopathy. Calcified mediastinal and right hilar lymph nodes consistent with remote granulomatous infection. Lungs and Pleura: No pleural effusion or pneumothorax. Patchy groundglass opacification in the mid anterior aspect of the right upper lobe on image 99 series 4 and in the lingula on image 122 series 4 may be infectious or inflammatory. Additional bilateral pulmonary opacities are likely largely due to atelectasis. Breast and Axilla: No axillary lymphadenopathy. Upper Abdomen: No visualized acute abnormality. Tiny hiatal hernia. Bones and Soft Tissues: No suspicious osseous or soft tissue abnormality. Remote right rib fractures. IMPRESSION: 1. No demonstrated pulmonary embolism. 2. Patchy/groundglass opacities in the right upper lobe and lingula may be infectious or inflammatory. Report Dictated By: Torsten Kidd MD at 06/09/2018 11:38 PM ED Course/Re-evaluation Clinical Indication for ER IV: Hydration, IV Access ED Course Provided a liter of normal saline and some Zofran. She needed oxygen and had 2 L by nasal cannula to support her sats. Chest x-ray unremarkable. She is positive for influenza A. Mild abnormalities of other labs including renal function and her AST and ALTs. CT scan of the cervical spine and head were negative and we did remove her cervical collar once this was cleared. CT angiogram was done because her d-dimer was elevated and this is negative for PE but does show some groundglass opacities in the lungs. I called and spoke with Dr. Merion who accepted the patient for admission for influenza A and generalized weakness with hypoxia Decision to Disposition Date: Jun 10, 2018 Decision to Disposition Time: 01:00 Depart Departure Latest Vital Signs Vital Signs Date Time Temp Pulse Resp B/P (MAP) Pulse Ox O2 Delivery O2 Flow Rate FiO2 06/10/18 01:31 75 30 90 06/10/18 01:30 106/37 (60) 06/09/18 21:27 2.0 06/09/18 21:04 100.5 Nasal Cannula Impression: Primary Impression: Influenza A Additional Impression: Generalized weakness Condition: Condition Unchanged Disposition: Admitted from ER New Scripts No Active Prescriptions or Reported Meds Problem Qualifiers TOM MERINO MD Jun 09, 2018 21:09
[2018-06-09] MEDS ORDERED: LORazepam 2 MG/ML VIAL IVP ONE (21:10)
[2018-06-09] MEDS ORDERED: ONDANSETRON 4 MG/2 ML VIAL IVP ONE (21:20)
[2018-06-09] MEDS ORDERED: NS(*) 0.9% 1000 ML BAG 1,000 ML IV ONE (21:20)
[2018-06-09 21:35] LABS: PLATELET COUNT, AUTOMATED 154 K/uL (150-450)
--- NOTE | 2018-06-09 22:27 | EKG ---
FACILITY: [facility] - [place] PATIENT NAME: EMMA CABRERA : [id number] MR: [id number] V: [id number] EXAM DATE: ORDERING PHYSICIAN: TOM MERINO TECHNOLOGIST: JOBY Pacheco Reason : Blood Pressure : / mmHG Vent. Rate : 081 BPM Atrial Rate : 081 BPM P-R Int : 142 ms QRS Dur : 096 ms QT Int : 396 ms P-R-T Axes : 052 193 034 degrees QTc Int : 460 ms Normal sinus rhythm Normal ECG When compared with ECG of 30-MAR-2018 19:34, premature atrial complexes are no longer present Confirmed by Scooter Salcido ([id number]) on 06/09/2018 10:52:12 PM Referred By: Confirmed By:Scooter Hernandez
--- NOTE | 2018-06-09 22:29 | RADIOLOGY IMAGING REPORT ---
FACILITY: [facility] PATIENT NAME: Michelle Head : 1950 MR: [id number] V: [id number] EXAM DATE: ORDERING PHYSICIAN: TOM MERINO TECHNOLOGIST: Location: [facility] - [place] Patient: Michelle Head : 1950 Visit/Account:[id number] Date of Sevice: 06/09/2018 Study: CT scan of the brain without intravenous contrast. Indication: Fall Comparison study: September 01, 2016 Technique: Multiple axial images were obtained through the brain without the use of intravenous contr ast. One of the following dose optimization techniques was utilized in the performance of this exam: Autom ated exposure control; adjustment of the mA and/or kV according to the patient's size; or use of an i terative reconstruction technique. Specific details can be referenced in the facility's radiology C T exam operational policy. The examination demonstrates no evidence of acute intracranial hemorrhage. There is no evidence of ex tra-axial collection or hydrocephalus. There is no abnormal density identified within the brain parenchyma. There is no evidence of disruption of the peripheral luna-white junction. The bony structures are unremarkable. IMPRESSION:Unremarkable CT scan of the brain without contrast. Report Dictated By: Chirag Patel at 06/09/2018 10:23 PM Report E-Signed By: Chirag Patel at 06/09/2018 10:24 PM WSN:[id number]
--- NOTE | 2018-06-09 22:30 | RADIOLOGY IMAGING REPORT ---
FACILITY: [facility] PATIENT NAME: Michelle Head : 1950 MR: [id number] V: [id number] EXAM DATE: ORDERING PHYSICIAN: TOM MERINO TECHNOLOGIST: Location: [facility] - [place] Patient: Michelle Head : 1950 Visit/Account:[id number] Date of Sevice: 06/09/2018 Study: CT VERTEBRA CERVICAL (NON CON) Indication: Fall COMPARISON STUDIES: none TECHNIQUE: Axial images were obtained from the skull base through the upper thoracic spine without i ntravenous contrast. Coronal and sagittal reformatted images were obtained from the axial source data . One of the following dose optimization techniques was utilized in the performance of this exam: Autom ated exposure control; adjustment of the mA and/or kV according to the patient's size; or use of an i terative reconstruction technique. Specific details can be referenced in the facility's radiology C T exam operational policy. FINDINGS: Pre-vertebral soft tissues: Negative Alignment: negative Vertebral bodies: Negative Posterior elements: Negative Disc Spaces: Negative Visualized soft tissues anterior neck: Negative Visualized lung / mediastinum: Negative IMPRESSION: Negative for acute fracture or spondylolisthesis. Report Dictated By: Chirag Patel at 06/09/2018 10:24 PM Report E-Signed By: Chirag Patel at 06/09/2018 10:27 PM WSN:[id number]
--- NOTE | 2018-06-09 22:31 | RADIOLOGY IMAGING REPORT ---
FACILITY: [facility] PATIENT NAME: Michelle Head : 1950 MR: [id number] V: [id number] EXAM DATE: ORDERING PHYSICIAN: TOM MERINO TECHNOLOGIST: Location: [facility] - [place] Patient: Michelle Head : 1950 Visit/Account:[id number] Date of Sevice: 06/09/2018 Study: Single portable view of the chest. Indication: Fall Comparison study: March 30, 2018 Technique: Single AP view of the chest demonstrates no evidence of acute infiltrate. There is no evid ence of pleural effusion or pneumothorax. The mediastinal, cardiac, and diaphragmatic contours are un remarkable. IMPRESSION: Unremarkable chest. Report Dictated By: Chirag Patel at 06/09/2018 10:27 PM Report E-Signed By: Chirag Patel at 06/09/2018 10:28 PM WSN:[id number]
[2018-06-09] MEDS ORDERED: NS(*) 0.9% 50 ML BAG 50 ML ONE (22:49)
[2018-06-09] MEDS ORDERED: IOPAMIDOL 76% 50 ML INFUS BTL 100 ML ONE (22:49)
--- NOTE | 2018-06-09 23:50 | RADIOLOGY IMAGING REPORT ---
FACILITY: [facility] - [place] PATIENT NAME: Michelle Head : 1950 MR: [id number] V: [id number] EXAM DATE: ORDERING PHYSICIAN: TOM MERINO TECHNOLOGIST: Location: [facility] Patient: Michelle Head : 1950 Visit/Account:[id number] Date of Sevice: 06/09/2018 CT PE DATE: 06/09/2018 11:38 PM INDICATION: Hypoxia, short of breath. COMPARISON: Same-day radiograph. TECHNIQUE: Axial CT angiogram was obtained through the chest with intravenous contrast. Sagittal an d coronal MPR and MIP coronal reformations were also generated. 75 mL isovue 370. One of the follow ing dose optimization techniques was utilized in the performance of this exam: Automated exposure con trol; adjustment of the mA and/or kV according to the patient's size; or use of an iterative reconst ruction technique. Specific details can be referenced in the facility's radiology CT exam operationa l policy. FINDINGS: Thyroid / Thoracic Inlet: No visualized thyroid nodule or supraclavicular lymphadenopathy. Pulmonary Arteries: No demonstrated pulmonary embolism. Heart and Aorta: Normal-size heart with no pericardial effusion. Mild mitral annulus calcification. Nonaneurysmal thoracic aorta. Mediastinum and Romy: No lymphadenopathy. Calcified mediastinal and right hilar lymph nodes consist ent with remote granulomatous infection. Lungs and Pleura: No pleural effusion or pneumothorax. Patchy groundglass opacification in the mid anterior aspect of the right upper lobe on image 99 series 4 and in the lingula on image 122 series 4 may be infectious or inflammatory. Additional bilateral pulmonary opacities are likely largely due to atelectasis. Breast and Axilla: No axillary lymphadenopathy. Upper Abdomen: No visualized acute abnormality. Tiny hiatal hernia. Bones and Soft Tissues: No suspicious osseous or soft tissue abnormality. Remote right rib fracture s. IMPRESSION: 1. No demonstrated pulmonary embolism. 2. Patchy/groundglass opacities in the right upper lobe and lingula may be infectious or inflammator y. Report Dictated By: Torsten Kidd MD at 06/09/2018 11:38 PM Report E-Signed By: Torsten Kidd MD at 06/09/2018 11:46 PM WSN:[id number]
[2018-06-10] MEDS ORDERED: OSELTAMIVIR PHOS 75 MG CAP PO ONE (00:15)
--- NOTE | 2018-06-10 02:06 | History & Physical ---
History of Present Illness Chief Complaint SOB, WALSH History of Present Illness 67F presented with concern for increased SOB and WALSH. PMHx significant for asthma. 4 day history of worsening fatigue, chills, cough, WALSH. Also reports worsening weakness including sliding off bed and hitting head on night stand, CT head negative for acute pathology. Denies any n/v. CXR showed no acute pathology., CTA chest no embolus noted but there were scattered ground glass opacities. Swab positive for influenza A and given her weakness and hypoxia she was admitted for further evaluation and treatment. History Problems: (1) Asthma (2) History of gastroesophageal reflux (GERD) Status: Acute (3) Anxiety Status: Acute Home Meds Discontinued Reported Medications Omeprazole (OMEPRAZOLE) 20 Mg Tablet.dr, 20 MG PO QDAY, TAB 03/29/18 Discontinued Scripts Prednisone 10 Mg Tab (PREDNISONE 10 MG TAB) 10 Mg Tablet, 10 MG PO QDAY PRN for reduce lung inflammation, #9 2 tabs daily for 3 days 1 tab daily for 3 days Prov:CUCO BOSWELL DO 03/30/18 Allergies: Coded Allergies: Shellfish (Verified Allergy, Severe, THROAT SWELLING, EYE SWELLING, DIFFICULTY BREATHING, NAUSEA, 06/09/18) aspirin (Verified Allergy, Mild, NAUSEA, 06/09/18) Uncoded Allergies: POLIO VACCINE (Allergy, Intermediate, FEVER, NECK & ARM SWELLING, NAUSEA, 04/05/09) Patient History: FH: HTN (hypertension) Hx Smoking: Yes Smoking Status: Former Smoker Exposure to Second Hand Smoke?: No Hx Alcohol Use: No Review of Systems All Systems Reviewed/Normal: Yes, Except as Noted Constitutional: Chills Respiratory: Shortness of Breath, Cough Exam Vital Signs Vital Signs Date Time Temp Pulse Resp B/P (MAP) Pulse Ox O2 Delivery O2 Flow Rate FiO2 06/09/18 22:51 105/49 (67) 06/09/18 22:47 ??? 06/09/18 22:32 31 89 06/09/18 21:27 2.0 06/09/18 21:04 100.5 Nasal Cannula General Appearance: Alert, Awake, Afebrile (mild distress) Eyes: PERRLA ENT: Normal Cardiovascular: Normal Rhythm & Peripheral Pulses Respiratory: Other (crackles b/l) GI: Abd Soft and Non-Tender Extremities: Soft and Non Tender, Warm, Pulses, Perfused, Edema Integumentary: Skin Intact without Lesion / Mass Medical Decision Making Data Points Result Diagram: 06/09/18210206/09/182102 Assessment and Plan Problems: (1) Acute respiratory failure with hypoxia Assessment & Plan: Secondary to influenza A infection. Baseline O2 room air. Requiring 2-3L to maintain saturation. (2) Influenza A Assessment & Plan: Begin Tamiflu 75mg bid. Supportive care, breathing treatments, PT/OT consult for associated weakness. (3) Asthma Assessment & Plan: Will give steroid for asthma exacerbation. (4) Anxiety Status: Acute Venous Thromboembolism Antithrombotics Is Pt On Any Antithrombotics?: Yes Exam Sepsis Risk: No Definite Risk FLYNN NO PAGE DO Jun 10, 2018 02:06
[2018-06-10] MEDS ORDERED: ALBUTEROL/IPRATROPIUM 3 ML NEB NEB PRN (02:10)
[2018-06-10] MEDS ORDERED: ONDANSETRON 4 MG/2 ML VIAL IVP PRN (02:10)
[2018-06-10] MEDS ORDERED: FLUSH 10 ML SYR IVP PRN (02:10)
[2018-06-10] MEDS ORDERED: INFLUENZA VIRUS VAC 0.5ML SYR IM ONLY ONE (02:10)
[2018-06-10 02:25] VITALS: BP 96/88
[2018-06-10 06:30] VITALS: BP 106/63
--- NOTE | 2018-06-10 09:17 | Antimicrobial Stewardship ---
Antimicrobial Stewardship Empiricly appropriate: Yes (Tamiflu) Significant PMH: Yes (Asthma) Support empiric regimen: Yes Comment Tamiflu 75mg po bid x 5 days Approriate Cultures done: Yes (Nasal swab- Influenza A (+)) Clinically stable/improving: Yes IV to PO Opportunity: Yes Determine cumulative duration: Today is day Determine standard duration: Treatment duration is 5 days Comment 67 yo F with PMH of asthma who presented with SOB and WALSH. Tested (+) for influenza A, started on Tamiflu. Tmax 100.5, WBC low, LFTs slightly elevated. Continue treatment with Tamiflu 75 mg po BID x 5 days. Guadalupe Ochoa, PharmD, BCOP GUADALUPE OCHOA Jun 10, 2018 09:17
[2018-06-10] MEDS: ENOXAPARIN 40 MG/0.4ML SYR SC SCH (09:24)
[2018-06-10] MEDS: predniSONE 20 MG TAB PO SCH (09:25)
[2018-06-10] MEDS: ACETAMINOPHEN 325 MG TAB PO PRN (09:25)
[2018-06-10] MEDS: OSELTAMIVIR PHOS 75 MG CAP PO SCH ×2 (09:25→21:39)
--- NOTE | 2018-06-10 10:10 | Hospitalist Progress Note ---
Subjective Progress Notes Subjective This patient was admitted for influenza. She had no acute events overnight. Patient Complains of: Cardiovascular: No: Chest Pain Respiratory: No: Shortness of Breath Physical Exam Vital Signs Date Time Temp Pulse Resp B/P (MAP) Pulse Ox O2 Delivery O2 Flow Rate FiO2 06/10/18 06:30 98.5 75 18 106/63 (77) 91 Nasal Cannula 06/10/18 02:25 2.0 Intake and Output 06/10/18 06:59 Intake Total 1120 ml Balance 1120 ml Intake Oral 120 ml IV Total 1000 ml # Voids 2 Cardiovascular: Regular Rate and Rhythm Respiratory: Clear to Auscultation Result Diagram: 06/09/18210206/10/18 0538 Assessment and Plan Problems: (1) Influenza A Assessment & Plan: She did test positive for influenza A. She has been started on Tamiflu. (2) Asthma Assessment & Plan: She is currently on IV steroids and nebulizer treatments. (3) Viral pneumonitis Assessment & Plan: Ground glass opacities were noted in the right lung. She is on treatment with Tamiflu as above. (4) Hypoxia Assessment & Plan: She is on supplemental oxygen. Exam Sepsis Risk: No Definite Risk NOY LAURA DO Jun 10, 2018 10:10
[2018-06-10 11:31] VITALS: BP 95/64
--- NOTE | 2018-06-10 11:50 | NUR ---
Occupational Therapy Impression Min A supine to sit with bed rail. CGA ambulation in room with handheld assist. Recommend use of RW due to weakness. Walker placed in room. SpO2 WNL on 3L. Declined further ADLs. Pt with decreased endurance and strength for ADLs/functional mobility. Rec further rehab prior to discharge home. Occupational Therapy Goals 1) Pt will be SBA UB/LB dressing. 2) Pt will be SBA grooming/hygiene. 3) Pt will be SBA toileting. 4) Pt will be educated on energy conservation stratagies. Patient's Goal
--- NOTE | 2018-06-10 11:57 | NUR ---
Physical Therapy Impression PT eval complete. Pt was independent with mobility without using an assistive device prior. Pt currently requires Min A x2 for bed mobility, hand-hold assist x2 to ambulate 10'. Placed walker in room as Pt would benefit from use. Recommendations pending progress. Physical Therapy Goals 1. Mod I bed mobility. 2. Mod I transfers. 3. Mod I gait x 50' with least restrictive device. 4. Ascend/descend 1 stairs CGA. Patient's Goals
[2018-06-10 12:41] VITALS: Ht 160 cm; Wt 125.2 kg
[2018-06-10 15:40] VITALS: BP 106/63
[2018-06-10 18:54] VITALS: BP 108/67
[2018-06-11 00:14] VITALS: BP 116/63
[2018-06-11 03:10] VITALS: BP 117/73
[2018-06-11] MEDS ORDERED: RANITIDINE HCL 150 MG TAB PO ONE (03:35)
[2018-06-11 06:41] LABS: PLATELET COUNT, AUTOMATED 148 K/uL (150-450)
--- NOTE | 2018-06-11 07:46 | NUR ---
ECF Referral - contacted yesterday by Tasha Mckoy RN. Resident will qualify for skilled rehab services after a 3 night qualifying stay of inpatient. Resident states she has Medicare A, but there is some confusion. I will contact the business office to check, but resident states she cannot go home as weak as she is. Discussed rehab philosophy and differences on ECF versus med/surg.
[2018-06-11 08:27] VITALS: BP 99/61
[2018-06-11] MEDS: predniSONE 20 MG TAB PO SCH (08:36)
[2018-06-11] MEDS: OSELTAMIVIR PHOS 75 MG CAP PO SCH ×2 (08:36→20:23)
[2018-06-11] MEDS: ENOXAPARIN 40 MG/0.4ML SYR SC SCH (08:36)
--- NOTE | 2018-06-11 11:53 | Hospitalist Progress Note ---
Subjective Progress Notes Subjective 67F admitted for acute hypoxic respiratory failure 2/2 influenza. SAMAN overnight, making some progress. Patient Complains of: Respiratory: Cough, Shortness of Breath Gastrointestinal: No Nausea, No Vomiting Physical Exam Vital Signs Date Time Temp Pulse Resp B/P (MAP) Pulse Ox O2 Delivery O2 Flow Rate FiO2 06/11/18 08:55 90 Nasal Cannula 3.0 06/11/18 08:27 98.5 74 20 99/61 (74) Intake and Output 06/11/18 06:59 Intake Total 2840 ml Balance 2840 ml Intake Oral 2840 ml # Voids 9 General Appearance: Alert, Awake, No Acute Distress (morbidly obese) Neuro: No Gross deficits ENT: Normal (R eyelid mass) Cardiovascular: Normal Rhythm & Peripheral Pulses Respiratory: No Respiratory Distress GI: Soft and Non-Tender Extremities: Soft and Non Tender, Warm, Pulses, Perfused Result Diagram: 06/11/18 0556 06/11/18 0556 Assessment and Plan Problems: (1) Influenza A Assessment & Plan: She did test positive for influenza A. She has been started on Tamiflu. (2) Asthma Assessment & Plan: She is currently on IV steroids and nebulizer treatments. (3) Viral pneumonitis Assessment & Plan: Ground glass opacities were noted in the right lung. She is on treatment with Tamiflu as above. (4) Hypoxia Assessment & Plan: She is on supplemental oxygen. (5) Morbid obesity Assessment & Plan: Discussed likely contributes to her back and knee pain. Would like to speak with sliver lap tender about decreasing calories. Exam Sepsis Risk: No Definite Risk FLYNN NO PAGE DO Jun 11, 2018 11:53
--- NOTE | 2018-06-11 12:35 | NUR ---
Occupational Therapy Impression Co- treat with PT. Pt. ambulated approx. 60 feet with use of FWW with one seated rest break on 3 L of O2 with SPO2 kept above 90%. Pt. demonstrated the ability to ascend/descend one step with CGA with use of FWW. OT recommends pt. d/c to short term subacute rehab or home with HH care. Continue with POC. Occupational Therapy Goals 1) Pt will be SBA UB/LB dressing. 2) Pt will be SBA grooming/hygiene. 3) Pt will be SBA toileting. 4) Pt will be educated on energy conservation strategies. Patient's Goal
[2018-06-11 17:07] VITALS: BP 104/80
[2018-06-11 20:07] VITALS: BP 110/72
[2018-06-11] MEDS: ACETAMINOPHEN 325 MG TAB PO PRN (20:28)
[2018-06-11] MEDS ORDERED: CALCIUM CARBONATE 500 MG CHEW PO PRN (23:45)
[2018-06-12] MEDS: PANTOPRAZOLE SOD 40 MG TABEC PO SCH (00:09)
[2018-06-12 01:45] VITALS: BP 133/78
[2018-06-12 07:55] VITALS: BP 98/47
--- NOTE | 2018-06-12 08:03 | NUR ---
ECF Referral - Per PT/OT patient has improved significantly and they reported she will probably be ready to go home with home health by the time she would qualify for SNF. Discussed with patient who said she felt so much better, information from therapy reported to Transitional Care Nurse, Angela Villalba. Will follow if needed or recommendation changes.
[2018-06-12] MEDS: OSELTAMIVIR PHOS 75 MG CAP PO SCH ×2 (08:59→21:43)
[2018-06-12] MEDS: predniSONE 20 MG TAB PO SCH (08:59)
[2018-06-12] MEDS: ENOXAPARIN 40 MG/0.4ML SYR SC SCH (08:59)
--- NOTE | 2018-06-12 13:01 | Hospitalist Progress Note ---
Subjective Progress Notes Subjective She reports feeling "a little better". No fever. Appetite better. Starting to mobilize. Physical Exam Vital Signs Date Time Temp Pulse Resp B/P (MAP) Pulse Ox O2 Delivery O2 Flow Rate FiO2 06/12/18 10:27 92 Nasal Cannula 2.0 06/12/18 07:55 98.2 63 24 98/47 (64) Intake and Output 06/12/18 07:00 Intake Total 1040 ml Balance 1040 ml Intake Oral 1040 ml # Voids 7 General Appearance: Alert, Awake Cardiovascular: Regular Rate and Rhythm Respiratory: Other (diminished bilaterally but fairly clear) Chest: No Tenderness GI: Soft and Non-Tender Extremities: Warm, Perfused Psych: Alert & Oriented X3 Result Diagram: 06/11/1856 06/11/18555 Assessment and Plan Problems: (1) Influenza A Status: Acute Assessment & Plan: She did test positive for influenza A. She is on Tamiflu. Clinically improved. Continue to mobilize. If she continues to progress, home soon. (2) Viral pneumonitis Status: Acute Assessment & Plan: Ground glass opacities were noted on CXR on the right. She is on treatment with Tamiflu as above. (3) Asthma Status: Chronic Assessment & Plan: She is currently on IV steroids and nebulizer treatments. No changes at this time. (4) Hypoxia Status: Acute Assessment & Plan: She is on supplemental oxygen. (5) Morbid obesity Status: Chronic Assessment & Plan: Discussed likely contributes to her back and knee pain. She would like to speak with boring machine operator double end about decreasing calories. Exam Sepsis Risk: Sepsis Risk LISE WYNNE MD Jun 12, 2018 13:01
--- NOTE | 2018-06-12 14:33 | NUR ---
Occupational Therapy Impression Pt alert and agreeable to OT tx. Reporting feeling much improved and ready to discharge home. Primary concerns include getting groceries, transportation etc. Discharge planning has been consulted for resources ([facility], [facility], PATs, etc.) SBA ambulation with RW. (I) O2 tubing management. SpO2 WNL on 2L. Mod (I) toileting. Independent LB dressing. Pt nearing OT goals. Reports no further questions/concerns for OT this time. Occupational Therapy Goals 1) Pt will be SBA UB/LB dressing. 2) Pt will be SBA grooming/hygiene. 3) Pt will be SBA toileting. 4) Pt will be educated on energy conservation stratagies. Patient's Goal
[2018-06-12 14:53] VITALS: BP 110/83
--- NOTE | 2018-06-12 16:32 | NUR ---
Physical Therapy Impression Pt is continuing to do well and is able to tolerate increased mobility. Currently, limitations to D/C are related to social work and planning for groceries, meals, and the pt not having a vehicle. Will cont. to work with pt while an inpatient, though pt is ready to D/C with services when medically appropriate. Pt seated on couch per her request at end of session. Physical Therapy Goals 1. Mod I bed mobility. 2. Mod I transfers. 3. Mod I gait x 50' with least restrictive device. 4. Ascend/descend 1 stairs CGA. Patient's Goals
[2018-06-12 19:59] VITALS: BP 124/74
[2018-06-13 05:45] VITALS: BP 109/53
[2018-06-13] MEDS: PANTOPRAZOLE SOD 40 MG TABEC PO SCH (05:48)
[2018-06-13 05:58] LABS: PLATELET COUNT, AUTOMATED 137 K/uL (150-450)
[2018-06-13 07:39] VITALS: BP 123/74
[2018-06-13] MEDS: OSELTAMIVIR PHOS 75 MG CAP PO SCH ×2 (09:12→20:42)
[2018-06-13] MEDS: ENOXAPARIN 40 MG/0.4ML SYR SC SCH (09:12)
[2018-06-13] MEDS: predniSONE 20 MG TAB PO SCH (09:13)
[2018-06-13] MEDS ORDERED: OSE75 PO (09:45)
[2018-06-13] MEDS ORDERED: PRED-1 PO (09:45)
--- NOTE | 2018-06-13 09:49 | Hospitalist Depart ---
Discharge Summary Reason for Hosp/Final Diag: (1) Influenza A Status: Acute Hospital Course & Plan: She did test positive for influenza A. She will complete a full course of Tamiflu. (2) Viral pneumonitis Status: Acute Hospital Course & Plan: Ground glass opacities were noted on CXR on the right. She is on treatment with Tamiflu as above. (3) Asthma Status: Chronic Hospital Course & Plan: She will complete a prednisone taper. (4) Hypoxia Status: Acute Hospital Course & Plan: She is on supplemental oxygen. (5) Morbid obesity with BMI of 45.0-49.9, adult Departure Latest Vital Signs Vital Signs 06/13/18 06/13/18 07:39 08:02 Temp 97.6 Pulse 61 Resp 18 B/P (MAP) 123/74 (90) Pulse Ox 85 O2 Delivery Room Air O2 Flow Rate 2.0 Weight (Pounds): 276 Result Diagram: 06/13/1851806/13/18518 Condition: Improved Discharge: Home, Home Health PT/OT Follow Up For: PT Evaluation and Treat, OT Evaluation and Treat Home Health RN Follow Up For: Nursing Assessment Discharge Instructions Home Meds Active Scripts Prednisone 10 Mg Tab (PREDNISONE 10 MG TAB) 10 Mg Tablet, 10 MG PO DIRECTED, #30 TAB Take 4 tab daily x 3 days, then 3 tab daily x 3 days, then 2 tab daily x 3 days, then 1 tab daily x 3 days. Prov:KEYANOY 06/13/18 Oseltamivir Phosphate (TAMIFLU) 75 Mg Cap, 75 MG PO BID, #3 CAP Prov:KEYANOY DO 06/13/18 Discontinued Reported Medications Omeprazole (OMEPRAZOLE) 20 Mg Tablet.dr, 20 MG PO QDAY, TAB 03/29/18 Discontinued Scripts Prednisone 10 Mg Tab (PREDNISONE 10 MG TAB) 10 Mg Tablet, 10 MG PO QDAY PRN for reduce lung inflammation, #9 2 tabs daily for 3 days 1 tab daily for 3 days Prov:CUCO BOSWELL DO 03/30/18 Diet: Regular Activity: As Tolerated Venous Thromboembolism Antithrombotics Is Pt On Any Antithrombotics?: Yes Hdeb-ly-Vcax Certification Face to Face Home Health Certification Institutional Provider conducted the wuhn-og-apol encounter. Electronic Undersigning Physician Certifies Home Health. I certify that the patient has been under my care and that I had a [id number] encounter that meets the physician [id number]-tp-uyzn encounter requirements with this patient. This patient is home-bound due to safety issues and continues to require assistance with ADL's. I certify that based on my findings, that Nursing, Aides and the following Home Health services are medically necessary: Medical Necessity: Nursing, Rehab Date Face to Face Conducted: Jun 13, 2018 NOY LAURA DO Jun 13, 2018 09:49
--- NOTE | 2018-06-13 10:53 | NUR ---
OCCUPATIONAL THERAPY Dressing Assistance: Independent Dressing Aid Required: Seated in low surface Bathing Assistance: N/T with OT Home Assessment: Not Completed Feeding Assistance: Independent Feeding Specialized Equipment: None Toilet Use: Modified I/ AE Verbalizes Needs: Yes Understands Precautions: Yes Cooperative: Yes Family Teaching: No Occupational Therapy Comment:
--- NOTE | 2018-06-13 11:45 | NUR ---
PHYSICAL THERAPY INFORMATION TRANSFER SHEET BED MOBILITY: Modified I/ AE TRANSFERS: Standby Assistance GAIT: 125 ' with O2 RW and Standby Assistance Verbalizes Needs: Yes Understands Directions Yes Cooperative: Yes Family Teaching: No Physical Therapy Comment:
[2018-06-13 12:36] VITALS: BP 114/75
--- NOTE | 2018-06-13 15:46 | NUR ---
Call from Rj Hope requesting SW come assist with pt, police are present notifying her son has in their home. Chaplain Lane has already been contacted, but not yet present. SW spoke with pt after police left. Pt tearful during conversation. Pt reports her son Harjit Lozano in the home, likely from having the flu. Pt reports she could not get in contact with him this morning, and called the landlord to go check on him at home. SW discussed with pt her social supports, pt does not have family in town and her only support in [place] is her landlord, who found her son in their home. Pt reports she has contacted her step daughters who reside in [place], Alva and Jc, but has not heard back from them. Pt has sister who resides in [place], [place], and has 3 other children who she reports she is not close with. Pt reports no islam beliefs and reports she prefers to work through things on her own when she has a tough time. Chaplain Lane entered room while SW was visiting and joined in conversation. Pt received call from step-daughter while in room, SW and stepped out to allow pt to have private conversation with family. SW checked back with pt and spent about 45 additional minutes of one-on-one group home counselor and support. Pt reporting her step daughters Alva and Jc were coming to [place] and should arrive around 1600. SW also discussed with pt remaining in hospital for an additional night, pt plans to visit with family before deciding. Pt voices desire to remain in hospital is her step daughters cannot stay with her in [place], and would be interested in discharging if they stay with her. Pt reports she does not want to return home tonight if she will be alone. Pt will let nurse know when she decides. Pt reports she has a cat, Blanquita, at home she wants to go take care of, but reports the police put out food and water for Blanquita while they were there. Pt discussed potential of moving to [place] to be closer to family, as she has no family in [place]. SW discussed mental health resources in [place], pt reports she had a negative counseling experience while she lived in [place], and is leery of receiving group home counselor in that type of environment again, but requested SW leave her information on [place] resources. SW gave pt a list of community counselors as well as information on hospice and grief counseling through them. Pt reported she wanted to call family and start notifying them, SW left resources and will check in with pt on 06/14 if she does not discharge tonight. LAVERN updated staff of pts plan to speak with family upon their arrival and make plans for discharge then. LAVERN spent total of 1.5 hours with pt offering support and group home counselor this afternoon.
[2018-06-13 15:49] VITALS: BP 132/73
--- NOTE | 2018-06-13 17:01 | NUR ---
Physical Therapy Impression Pt experienced a family loss today and is not available for PT session. Pt has met all PT goals and from a mobility standpoint is ready for discharge with support of family when they are available and when medically appropriate. Physical Therapy Goals 1. Mod I bed mobility. 2. Mod I transfers. 3. Mod I gait x 50' with least restrictive device. 4. Ascend/descend 1 stairs CGA. Patient's Goals
[2018-06-13 20:19] VITALS: BP 118/77
[2018-06-13] MEDS: ACETAMINOPHEN 325 MG TAB PO PRN (20:43)
[2018-06-14 03:33] VITALS: BP 133/64
[2018-06-14] MEDS: PANTOPRAZOLE SOD 40 MG TABEC PO SCH (05:16)
[2018-06-14 06:58] VITALS: BP 125/73
[2018-06-14] MEDS: predniSONE 20 MG TAB PO SCH (09:29)
[2018-06-14] MEDS: ENOXAPARIN 40 MG/0.4ML SYR SC SCH (09:29)
[2018-06-14] MEDS: OSELTAMIVIR PHOS 75 MG CAP PO SCH (09:29)
--- NOTE | 2018-06-14 10:28 | Hospitalist Depart ---
Discharge Summary Reason for Hosp/Final Diag: (1) Influenza A Status: Acute Hospital Course & Plan: She did test positive for influenza A. She will complete a full course of Tamiflu. (2) Viral pneumonitis Status: Acute Hospital Course & Plan: Ground glass opacities were noted on CXR on the right. She is on treatment with Tamiflu as above. (3) Asthma Status: Chronic Hospital Course & Plan: She will complete a prednisone taper. (4) Hypoxia Status: Acute Hospital Course & Plan: She is on supplemental oxygen. (5) Morbid obesity with BMI of 45.0-49.9, adult Departure Latest Vital Signs Vital Signs 06/14/18 06/14/18 03:33 06:58 Temp 97.4 Pulse 64 Resp 18 B/P (MAP) 125/73 (90) Pulse Ox 90 O2 Delivery Oxy Mask O2 Flow Rate 2.0 Weight (Pounds): 276 Result Diagram: 06/13/1851806/13/18518 Condition: Improved Discharge: Home, Home Health PT/OT Follow Up For: PT For Strengthening, PT Evaluation and Treat Home Health RN Follow Up For: Nursing Assessment Discharge Instructions Home Meds Active Scripts Prednisone 10 Mg Tab (PREDNISONE 10 MG TAB) 10 Mg Tablet, 10 MG PO DIRECTED, #30 TAB Take 4 tab daily x 3 days, then 3 tab daily x 3 days, then 2 tab daily x 3 days, then 1 tab daily x 3 days. Prov:KEYANOY 06/13/18 Oseltamivir Phosphate (TAMIFLU) 75 Mg Cap, 75 MG PO BID, #3 CAP Prov:KEYANOY DO 06/13/18 Discontinued Reported Medications Omeprazole (OMEPRAZOLE) 20 Mg Tablet.dr, 20 MG PO QDAY, TAB 03/29/18 Discontinued Scripts Prednisone 10 Mg Tab (PREDNISONE 10 MG TAB) 10 Mg Tablet, 10 MG PO QDAY PRN for reduce lung inflammation, #9 2 tabs daily for 3 days 1 tab daily for 3 days Prov:CUCO BOSWELL DO 03/30/18 Diet: Regular Activity: As Tolerated Special Instructions: Venous Thromboembolism Antithrombotics Is Pt On Any Antithrombotics?: Yes [id number] Certification Face to Face Home Health Certification Institutional Provider conducted the yvpw-ay-aule encounter. Electronic Undersigning Physician Certifies Home Health. I certify that the patient has been under my care and that I had a clyd-au-sffd encounter that meets the physician lckg-fz-sdzk encounter requirements with this patient. This patient is home-bound due to safety issues and continues to require assistance with ADL's. I certify that based on my findings, that Nursing, Aides and the following Home Health services are medically necessary. Medical Necessity: Nursing, Rehab Date Face to Face Conducted: Jun 14, 2018 TUCKER RAMOS Jun 14, 2018 10:28
[2018-06-14 11:52] VITALS: BP 126/96
--- NOTE | 2018-06-14 11:52 | NUR ---
SW followed-up with pt this am, her granddaughter Charlette was present with her. Pt reports she is doing well now that her family is here with her, and they plan to stay through Sunday. Pt reports desire to DC today and will be with family, requested SW check on DC timeline. Pt has packet of mental health resources in [place], reports no other needs. LAVERN notified lead RN of pt's desire for DC, and Sera Gonzales RN reports plan to work on this. Pt does not need ride home, family will drive.
== END 2018-06-14 14:20 | disposition home health service (06) | DRG 193 ==
LOC: ER 21:11 → MED 06-10 01:43
PROVIDERS: ADMIT Internal Medicine; ATTEND Internal Medicine
DX: J10.01 Influenza due to other identified influenza virus with the same other identified influenza virus pneumonia (principal); J96.01 Acute respiratory failure with hypoxia; Z68.42 Body mass index [BMI] 45.0-49.9, adult; E66.01 Morbid (severe) obesity due to excess calories; K21.9 Gastro-esophageal reflux disease without esophagitis; F41.9 Anxiety disorder, unspecified; R53.1 Weakness; J45.909 Unspecified asthma, uncomplicated; Z88.8 Allergy status to other drugs, medicaments and biological substances; Z91.013 Allergy to seafood; Z87.891 Personal history of nicotine dependence
CPT/HCPCS: 36415; 70450; 71045; 71275; 72125; 81001; 82040; 82150; 82247; 82310; 82374; 82435; 82565; 82947; 83605; 83690; 83735; 84075; 84132; 84155; 84295; 84450; 84460; 84484; 84520; 85025; 85379; 87040; 87088; 87502; 93005; 96361; 96374; 97162; 97166; 99285; J1650; J2405; J7030; J7050; J7512; Q9967

== ENCOUNTER → 2018-06-09 | Outpatient (CLI) | payer MEDICARE ==
[~2018-06-09] MED LIST changes: +OSE75 PO; +PRED-1 PO
[2018-06-10 12:41] VITALS: BMI 48.9
== END ==
LOC: AMB 20:34
PROVIDERS: ATTEND Nurse Practitioner
DX: R53.1 Weakness (principal); R51 Headache; R09.02 Hypoxemia
CPT/HCPCS: A0425; A0427

== ENCOUNTER 2018-07-05 13:08 | Emergency (ER) | payer MEDICARE ==
[2018-06-10 12:41] VITALS: Wt 117.9 kg
[~2018-07-05 13:08] MED LIST changes: +OSE75 PO
--- NOTE | 2018-07-05 13:09 | ER Report ---
History and Physical Time Seen By MD: 13:09 HPI/ROS CHIEF COMPLAINT: Right-sided facial pain HISTORY OF PRESENT ILLNESS: Patient is a 67-year-old female here with complaints of right-sided facial pain. Patient reports mild swelling in her right cheek. Denies fevers, chills, chest pain or shortness breath. REVIEW OF SYSTEMS: Constitutional: No fever, no chills. Eyes: No discharge. ENT: No sore throat. Cardiovascular: No chest pain, no palpitations. Respiratory: No cough, no shortness of breath. Gastrointestinal: No abdominal pain, no vomiting. Genitourinary: No hematuria. Musculoskeletal: No back pain.+ Skin: No rashes. Neurological: + Right-sided facial pain, numbness, tingling without facial palsy Allergies: Coded Allergies: Shellfish (Verified Allergy, Severe, THROAT SWELLING, EYE SWELLING, DIF FICULTY BREATHING, NAUSEA, 06/09/18) aspirin (Verified Allergy, Mild, NAUSEA, 06/09/18) Uncoded Allergies: POLIO VACCINE (Allergy, Intermediate, FEVER, NECK & ARM SWELLING, NAUSEA, 04/05/09) Home Meds Active Scripts Doxycycline Hyclate (DOXYCYCLINE HYCLATE) 100 Mg Tablet, 100 MG PO BID for 7 Days, #14 TAB Prov:PARKER WICK DO 07/05/18 Tramadol Hcl (TRAMADOL HCL) 50 Mg Tablet, 50 MG PO Q6H PRN for PAIN, #12 TAB 0 Refills Prov:PARKER WICK DO 07/05/18 Prednisone (PREDNISONE) 50 Mg Tablet, 50 MG PO QDAY for 4 Days, #4 TAB Prov:PARKER WICK DO 07/05/18 Reported Medications Omeprazole (OMEPRAZOLE) 20 Mg Capsule.dr, 1 CAP PO QDAY, CAP 07/07/18 Discontinued Scripts Prednisone 10 Mg Tab (PREDNISONE 10 MG TAB) 10 Mg Tablet, 10 MG PO DIRECTED, #30 TAB Take 4 tab daily x 3 days, then 3 tab daily x 3 days, then 2 tab daily x 3 days, then 1 tab daily x 3 days. Prov:NOY LAURA DO 06/13/18 Oseltamivir Phosphate (TAMIFLU) 75 Mg Cap, 75 MG PO BID, #3 CAP Prov:NOY LAURA DO 06/13/18 Hx Smoking: Yes Smoking Status: Former Smoker Exposure to Second Hand Smoke?: No Hx Substance Use Disorder: No Hx Alcohol Use: No Constitutional Physical Exam General Appearance: The patient is alert, has no immediate need for airway protection and no signs of toxicity. No acute distress Eyes: Pupils equal and round no pallor or injection. ENT, Mouth: Mucous membranes are moist. Respiratory: There are no retractions, lungs are clear to auscultation. Cardiovascular: Regular rate and rhythm. Gastrointestinal: Abdomen is soft and non tender, no masses, bowel sounds normal. Neurological: Right-sided facial paresthesias without palsy, no other appreciable focal neurological findings Skin: Warm and dry, no rashes. Musculoskeletal: Neck is supple non tender. Extremities are nontender, nonswollen and have full range of motion. DIFFERENTIAL DIAGNOSIS: After history and physical exam differential diagnosis was considered for facial mass, Brambila's palsy, parotitis Medical Decision Making Data Points Laboratory Hematology Test 07/05/18 13:32 Red Blood Count 4.65 M/uL (4.17-5.56) Mean Corpuscular Volume 93.0 fL (80.0-96.0) Mean Corpuscular Hemoglobin 31.0 pg (26.0-33.0) Mean Corpuscular Hemoglobin Concent 33.4 g/dL (32.0-36.0) Red Cell Distribution Width 14.1 % (11.5-14.5) Mean Platelet Volume 8.1 fL (7.2-11.1) Neutrophils (%) (Auto) 72.0 % (39.4-72.5) Lymphocytes (%) (Auto) 16.8 % (17.6-49.6) Monocytes (%) (Auto) 8.2 % (4.1-12.4) Eosinophils (%) (Auto) 2.7 % (0.4-6.7) Basophils (%) (Auto) 0.3 % (0.3-1.4) Nucleated RBC Relative Count (auto) 0.0 /100WBC Neutrophils # (Auto) 5.0 K/uL (2.0-7.4) Lymphocytes # (Auto) 1.2 K/uL (1.3-3.6) Monocytes # (Auto) 0.6 K/uL (0.3-1.0) Eosinophils # (Auto) 0.2 K/uL (0.0-0.5) Basophils # (Auto) 0.0 K/uL (0.0-0.1) Nucleated RBC Absolute Count (auto) 0.00 K/uL Erythrocyte Sedimentation Rate 31 mm/HOUR (0-30) Sodium Level 136 mmol/L (137-145) Potassium Level 3.5 mmol/L (3.5-5.0) Chloride Level 103 mmol/L (98-107) Carbon Dioxide Level 27 mmol/L (22-31) Blood Urea Nitrogen 9 mg/dl (7-18) Creatinine 0.80 mg/dl (0.52-1.04) Glomerular Filtration Rate Calc > 60.0 Random Glucose 100 mg/dl (75-110) Calcium Level 9.0 mg/dl (8.4-10.2) Phosphorus Level 3.3 mg/dl (2.5-4.5) Magnesium Level 1.8 mg/dl (1.7-2.2) Total Bilirubin 1.0 mg/dl (0.2-1.3) Aspartate Amino Transf (AST/SGOT) 28 U/L (0-35) Alanine Aminotransferase (ALT/SGPT) 40 U/L (0-56) Alkaline Phosphatase 79 U/L (0-126) Total Protein 6.4 g/dl (6.3-8.2) Albumin 3.8 g/dl (3.5-5.0) Chemistry Test 07/05/18 13:32 White Blood Count 6.9 k/uL (4.5-11.0) Red Blood Count 4.65 M/uL (4.17-5.56) Hemoglobin 14.4 g/dL (12.0-16.0) Hematocrit 43.2 % (34.0-47.0) Mean Corpuscular Volume 93.0 fL (80.0-96.0) Mean Corpuscular Hemoglobin 31.0 pg (26.0-33.0) Mean Corpuscular Hemoglobin Concent 33.4 g/dL (32.0-36.0) Red Cell Distribution Width 14.1 % (11.5-14.5) Platelet Count 187 K/uL (150-450) Mean Platelet Volume 8.1 fL (7.2-11.1) Neutrophils (%) (Auto) 72.0 % (39.4-72.5) Lymphocytes (%) (Auto) 16.8 % (17.6-49.6) Monocytes (%) (Auto) 8.2 % (4.1-12.4) Eosinophils (%) (Auto) 2.7 % (0.4-6.7) Basophils (%) (Auto) 0.3 % (0.3-1.4) Nucleated RBC Relative Count (auto) 0.0 /100WBC Neutrophils # (Auto) 5.0 K/uL (2.0-7.4) Lymphocytes # (Auto) 1.2 K/uL (1.3-3.6) Monocytes # (Auto) 0.6 K/uL (0.3-1.0) Eosinophils # (Auto) 0.2 K/uL (0.0-0.5) Basophils # (Auto) 0.0 K/uL (0.0-0.1) Nucleated RBC Absolute Count (auto) 0.00 K/uL Erythrocyte Sedimentation Rate 31 mm/HOUR (0-30) Glomerular Filtration Rate Calc > 60.0 Calcium Level 9.0 mg/dl (8.4-10.2) Phosphorus Level 3.3 mg/dl (2.5-4.5) Magnesium Level 1.8 mg/dl (1.7-2.2) Total Bilirubin 1.0 mg/dl (0.2-1.3) Aspartate Amino Transf (AST/SGOT) 28 U/L (0-35) Alanine Aminotransferase (ALT/SGPT) 40 U/L (0-56) Alkaline Phosphatase 79 U/L (0-126) Total Protein 6.4 g/dl (6.3-8.2) Albumin 3.8 g/dl (3.5-5.0) EKG/Imaging Imaging Location: [facility] - [place] Patient: Michelle Head : 1950 Visit/Account:[id number] Date of Sevice: 07/05/2018 CT FACIAL BONES W CONTRAST HISTORY: right sided facial pain COMPARISON STUDIES: none TECHNIQUE: Axial images were obtained from the superior aspect of the orbits through the inferior aspect of mandible following the administration of intravenous contrast. Coronal reformatted images were obtained from the axial source data. One of the following dose optimization techniques was utilized in the performance of this exam: Automated exposure control; adjustment of the mA and/or kV according to the patient's size; or use of an iterative reconstruction technique. Specific details can be referenced in the facility's radiology CT exam operational policy. CONTRAST: 50 mL Isovue-300 FINDINGS: Soft Tissues: There is an area of exophytic soft tissue at the lateral aspect of the right orbit. There is no induration or fluid collection associated with this finding. Mandible / TMJ: Negative Maxilla / pterygoid plates: Negative Zygoma: Negative Orbits: Negative Nasal bones / nasal septum: Negative Sinuses: Negative Mastoids: Negative Visualized brain: Negative Cervical spine: Negative There are numerous dental caries identified within the teeth. IMPRESSION: Area of exophytic soft tissue at lateral aspect of right orbit. There is no evidence of underlying abnormality in this area. Otherwise unremarkable. There is no evidence of abscess within the soft tissues of the face. There is no evidence of significant cervical adenopathy identified. Incidental note is made of numerous dental caries present within the teeth. ED Course/Re-evaluation ED Course Patient is a 67-year-old female here with a right sided facial mass. Patient was advised to follow-up with ear nose and throat for further evaluation. Patient was started on prednisone, doxycycline, tramadol for symptom management. Labs are unremarkable. Patient was stable time of discharge. Return precautions provided Decision to Disposition Date: Jul 05, 2018 Decision to Disposition Time: 15:18 Depart Departure Latest Vital Signs Impression: Primary Impression: Facial pain Additional Impression: Soft tissue lesion Condition: Improved Disposition: HOME OR SELF-CARE New Scripts Doxycycline Hyclate (DOXYCYCLINE HYCLATE) 100 Mg Tablet 100 MG PO BID for 7 Days, #14 TAB Prov: PARKER WICK DO 07/05/18 Tramadol Hcl (TRAMADOL HCL) 50 Mg Tablet 50 MG PO Q6H PRN for PAIN, #12 TAB 0 Refills Prov: PARKER WICK DO 07/05/18 Prednisone (PREDNISONE) 50 Mg Tablet 50 MG PO QDAY for 4 Days, #4 TAB Prov: PARKER WICK DO 07/05/18 Patient Instructions: Doxycycline (By mouth), Soft Tissue Mass (ED) Additional Instructions: Please drink plenty of water. You were diagnosed with a soft tissue lesion located in the right side of her face. You will be covered with an antibiotic called doxycycline, take 1 tablet twice daily for 7 days. You'll need to arrange for follow-up with ear nose and throat in order to have the lesion further evaluated as it is located near the facial nerve. Please take prednisone 1 tablet or 50 mg daily for 4 days. You may take naproxen or ibuprofen or Tylenol as needed for primary pain control and tramadol 1 tablet every 6-8 hours as nee ded for breakthrough pain control. Please return immediately if you develop worsening pain, fevers, facial motor weakness, numbness, difficulty swallowing or chewing. Problem Qualifiers PARKER WICK DO Jul 05, 2018 13:09
[2018-07-05] MEDS ORDERED: KETOROLAC 30 MG/ML VIAL IVP ONE (13:25)
[2018-07-05 13:42] LABS: PLATELET COUNT, AUTOMATED 187 K/uL (150-450)
[2018-07-05] MEDS ORDERED: IOPAMIDOL 76% 75 ML INFUS BTL 0 ML ONE (13:49)
--- NOTE | 2018-07-05 14:58 | RADIOLOGY IMAGING REPORT ---
[place] [facility] [place] NAME: Michelle Head : 1950 MR: [id number] V: [id number] EXAM DATE: ORDERING PHYSICIAN: PARKER WICK TECHNOLOGIST: Location: [facility] - [place] Patient: Michelle Head : 1950 Visit/Account:[id number] Date of Sevice: 07/05/2018 CT FACIAL BONES W CONTRAST HISTORY: right sided facial pain COMPARISON STUDIES: none TECHNIQUE: Axial images were obtained from the superior aspect of the orbits through the inferior as pect of mandible following the administration of intravenous contrast. Coronal reformatted images wer e obtained from the axial source data. One of the following dose optimization techniques was utilized in the performance of this exam: Autom ated exposure control; adjustment of the mA and/or kV according to the patient's size; or use of an i terative reconstruction technique. Specific details can be referenced in the facility's radiology C T exam operational policy. CONTRAST: 50 mL Isovue-300 FINDINGS: Soft Tissues: There is an area of exophytic soft tissue at the lateral aspect of the right orbit. The re is no induration or fluid collection associated with this finding. Mandible / TMJ: Negative Maxilla / pterygoid plates: Negative Zygoma: Negative Orbits: Negative Nasal bones / nasal septum: Negative Sinuses: Negative Mastoids: Negative Visualized brain: Negative Cervical spine: Negative There are numerous dental caries identified within the teeth. IMPRESSION: Area of exophytic soft tissue at lateral aspect of right orbit. There is no evidence of underlying ab normality in this area. Otherwise unremarkable. There is no evidence of abscess within the soft tissues of the face. There is no evidence of significant cervical adenopathy identified. Incidental note is made of numerous dental caries present within the teeth. Report Dictated By: Chirag Patel at 07/05/2018 2:41 PM Report E-Signed By: Chirag Patel at 07/05/2018 2:54 PM WSN:[id number]
[2018-07-05 15:15] VITALS: BP 138/92
[2018-07-05] MEDS ORDERED: traMADol 50 MG TAB TH 2 TAB/BOTTLE PO ONE (15:20)
[2018-07-05] MEDS ORDERED: predniSONE 20 MG TAB PO ONE (15:20)
[2018-07-05] MEDS ORDERED: DOXY-179 PO (15:25)
[2018-07-05] MEDS ORDERED: TRAM-420 PO (15:25)
[2018-07-05] MEDS ORDERED: DOXYCYCLINE HYCL 100 MG TAB PO ONE (15:25)
[2018-07-05] MEDS ORDERED: PRED50TA22 PO (15:25)
[2018-07-07] MEDS ORDERED: OMEP-125 PO (15:29)
== END 2018-07-07 17:40 | disposition home or self-care (01) ==
LOC: ER 13:25
DX: L98.8 Other specified disorders of the skin and subcutaneous tissue (principal)
CPT/HCPCS: 70487; 83735; 84100; 85025; 85651; 96374; 99284; A9270; J1885; J7512; 82040; 82247; 82310; 82374; 82435; 82565; 82947; 84075; 84132; 84155; 84295; 84450; 84460; 84520; C9399; Q9967

== ENCOUNTER → 2018-07-07 | Emergency (ER) | payer SELFPAY ==
[~2018-07-07] MED LIST changes: +DOXY-179 PO; +LORazepam 2 MG/ML VIAL IVP ONE; +NS(*) 0.9% 1000 ML BAG 1,000 ML IV ONE; +OMEP-125 PO; +ONDANSETRON 4 MG/2 ML VIAL IVP ONE; +PRED50TA22 PO; +TRAM-420 PO
--- NOTE | 2018-07-07 14:21 | ER Report ---
History and Physical Time Seen By MD: 14:21 HPI/ROS CHIEF COMPLAINT: Medication reaction HISTORY OF PRESENT ILLNESS: Patient is a 67-year-old female here with complaints of tremulousness, likely secondary to medication reaction. I had seen this patient previously for right-sided facial mass at which time she was started on prednisone, doxycycline, tramadol and advised to follow-up with ENT. Patient was given initial doses of prednisone and doxycycline prior to discharge. Patient does report having taken tramadol starting last night causing insomnia and recurrent dose this morning at which time the patient developed severe tremulousness, shortness breath, tachycardia. Patient is afebrile at time of evaluation, tachycardic, tachypneic. REVIEW OF SYSTEMS: Constitutional: No fever, no chills. Eyes: No discharge. ENT: No sore throat. Cardiovascular: No chest pain, + palpitations. Respiratory: No cough, + shortness of breath. Gastrointestinal: No abdominal pain, no vomiting. Genitourinary: No hematuria. Musculoskeletal: No back pain. Skin: No rashes. Neurological: No headache.+ Anxious appearing, tremulous Allergies: Coded Allergies: Shellfish (Verified Allergy, Severe, THROAT SWELLING, EYE SWELLING, DIFFICULTY BREATHING, NAUSEA, 06/09/18) aspirin (Verified Allergy, Mild, NAUSEA, 06/09/18) Uncoded Allergies: POLIO VACCINE (Allergy, Intermediate, FEVER, NECK & ARM SWELLING, NAUSEA, 04/05/09) Home Meds Active Scripts Doxycycline Hyclate (DOXYCYCLINE HYCLATE) 100 Mg Tablet, 100 MG PO BID for 7 Days, #14 TAB Prov:PARKER WICK DO 07/05/18 Tramadol Hcl (TRAMADOL HCL) 50 Mg Tablet, 50 MG PO Q6H PRN for PAIN, #12 TAB 0 Refills Prov:PARKER WICK DO 07/05/18 Prednisone (PREDNISONE) 50 Mg Tablet, 50 MG PO QDAY for 4 Days, #4 TAB Prov:PARKER WICK DO 07/05/18 Reported Medications Omeprazole (OMEPRAZOLE) 20 Mg Capsule.dr, 1 CAP PO QDAY, CAP 07/07/18 Discontinued Scripts Prednisone 10 Mg Tab (PREDNISONE 10 MG TAB) 10 Mg Tablet, 10 MG PO DIRECTED, #30 TAB Take 4 tab daily x 3 days, then 3 tab daily x 3 days, then 2 tab daily x 3 days, then 1 tab daily x 3 days. Prov:NOY LAURA DO 06/13/18 Oseltamivir Phosphate (TAMIFLU) 75 Mg Cap, 75 MG PO BID, #3 CAP Prov:NOY LAURA DO 06/13/18 Constitutional Vital Sign - Last 24 Hours 07/07/18 07/07/18 07/07/18 07/07/18 14:24 14:27 14:29 14:30 Resp 14 17 B/P (MAP) 138/100 (113) 161/139 (146) Pulse Ox 85 07/07/18 07/07/18 07/07/18 07/07/18 14:30 14:34 14:39 14:44 Temp 97.5 Pulse 87 91 86 85 Resp 19 B/P (MAP) 161/139 Pulse Ox 96 94 94 89 O2 Delivery Nasal Cannula 07/07/18 07/07/18 07/07/18 07/07/18 14:49 14:54 14:59 15:00 Pulse 85 86 81 Resp 12 13 17 B/P (MAP) 127/81 (96) Pulse Ox 91 89 84 07/07/18 07/07/18 07/07/18 07/07/18 15:04 15:09 15:14 15:19 Pulse 93 79 80 80 Resp 18 13 13 18 Pulse Ox 89 93 96 96 07/07/18 07/07/18 07/07/18 07/07/18 15:24 15:29 15:30 15:34 Pulse 80 76 78 Resp 18 19 17 B/P (MAP) 121/81 (94) Pulse Ox 97 95 95 07/07/18 07/07/18 07/07/18 07/07/18 15:39 15:44 15:49 15:54 Pulse 75 76 78 75 Resp 19 21 30 20 Pulse Ox 92 92 95 95 O2 Delivery Nasal Cannula O2 Flow Rate 2 07/07/18 07/07/18 07/07/18 07/07/18 15:59 16:00 16:04 16:09 Pulse 79 80 79 Resp 25 24 25 B/P (MAP) 121/75 (90) Pulse Ox 95 96 98 07/07/18 07/07/18 07/07/18 07/07/18 16:14 16:19 16:24 16:29 Pulse 78 81 110 Resp 19 23 16 28 Pulse Ox 95 95 2/24/19 2/24/19 2/24/19 2/24/19 16:34 16:39 16:44 16:49 Pulse 86 79 81 84 Resp 20 17 17 16 Pulse Ox 92 91 92 92 Physical Exam General Appearance: The patient is alert, has no immediate need for airway protection and no signs of toxicity. Anxious appearing, moderate distress secondary to tremulousness Eyes: Pupils equal and round no pallor or injection. ENT, Mouth: Mucous membranes are moist. Respiratory: + tachypneic Cardiovascular: + Tachycardic Gastrointestinal: Abdomen is soft and non tender, no masses, bowel sounds normal. Neurological: Tremulous, anxious appearing Skin: Warm and dry, no rashes. Musculoskeletal: Neck is supple non tender. Extremities are nontender, nonswollen and have full range of motion. DIFFERENTIAL DIAGNOSIS: After history and physical exam differential diagnosis was considered for medication reaction, infection, anxiety Medical Decision Making Data Points Result Diagram: 07/07/18 1443 07/07/18 1443 Laboratory Hematology Test 07/07/18 14:43 07/07/18 16:27 Red Blood Count 4.85 M/uL (4.17-5.56) Mean Corpuscular Volume 93.1 fL (80.0-96.0) Mean Corpuscular Hemoglobin 31.2 pg (26.0-33.0) Mean Corpuscular Hemoglobin Concent 33.5 g/dL (32.0-36.0) Red Cell Distribution Width 14.3 % (11.5-14.5) Mean Platelet Volume 8.4 fL (7.2-11.1) Neutrophils (%) (Auto) 74.2 % (39.4-72.5) Lymphocytes (%) (Auto) 15.7 % (17.6-49.6) Monocytes (%) (Auto) 8.7 % (4.1-12.4) Eosinophils (%) (Auto) 0.9 % (0.4-6.7) Basophils (%) (Auto) 0.5 % (0.3-1.4) Nucleated RBC Relative Count (auto) 0.0 /100WBC Neutrophils # (Auto) 7.5 K/uL (2.0-7.4) Lymphocytes # (Auto) 1.6 K/uL (1.3-3.6) Monocytes # (Auto) 0.9 K/uL (0.3-1.0) Eosinophils # (Auto) 0.1 K/uL (0.0-0.5) Basophils # (Auto) 0.1 K/uL (0.0-0.1) Nucleated RBC Absolute Count (auto) 0.00 K/uL Sodium Level 138 mmol/L (137-145) Potassium Level 3.4 mmol/L (3.5-5.0) Chloride Level 106 mmol/L (98-107) Carbon Dioxide Level 23 mmol/L (22-31) Blood Urea Nitrogen 12 mg/dl (7-18) Creatinine 0.90 mg/dl (0.52-1.04) Glomerular Filtration Rate Calc > 60.0 Random Glucose 117 mg/dl (75-110) Lactate 2.1 mmol/L (0.7-2.1) Calcium Level 9.8 mg/dl (8.4-10.2) Total Bilirubin 0.7 mg/dl (0.2-1.3) Aspartate Amino Transf (AST/SGOT) 24 U/L (0-35) Alanine Aminotransferase (ALT/SGPT) 42 U/L (0-56) Alkaline Phosphatase 79 U/L (0-126) Total Protein 6.8 g/dl (6.3-8.2) Albumin 3.9 g/dl (3.5-5.0) Lipase 51 U/L (23-300) Urine Color Straw Urine Clarity Clear Urine pH 7.0 pH (4.8-9.5) Urine Specific [place] 1.002 Urine Protein Negative mg/dL (NEGATIVE) Urine Glucose (UA) Negative mg/dL (NEGATIVE) Urine Ketones Negative mg/dL (NEGATIVE) Urine Blood Negative (NEGATIVE) Urine Nitrite Negative (NEGATIVE) Urine Bilirubin Negative (NEGATIVE) Urine Urobilinogen Negative mg/dL (0.2-1.9) Urine Leukocyte Esterase Negative (NEGATIVE) Urine RBC None /HPF (0-2/HPF) Urine WBC 2 /HPF (0-5/HPF) Urine Squamous Epithelial Cells Few /LPF (</=FEW) Urine Bacteria Negative /HPF (NONE-FEW) Urine Mucus None /HPF (NONE-FEW) Chemistry Test 07/07/18 14:43 07/07/18 16:27 White Blood Count 10.1 k/uL (4.5-11.0) Red Blood Count 4.85 M/uL (4.17-5.56) Hemoglobin 15.1 g/dL (12.0-16.0) Hematocrit 45.1 % (34.0-47.0) Mean Corpuscular Volume 93.1 fL (80.0-96.0) Mean Corpuscular Hemoglobin 31.2 pg (26.0-33.0) Mean Corpuscular Hemoglobin Concent 33.5 g/dL (32.0-36.0) Red Cell Distribution Width 14.3 % (11.5-14.5) Platelet Count 207 K/uL (150-450) Mean Platelet Volume 8.4 fL (7.2-11.1) Neutrophils (%) (Auto) 74.2 % (39.4-72.5) Lymphocytes (%) (Auto) 15.7 % (17.6-49.6) Monocytes (%) (Auto) 8.7 % (4.1-12.4) Eosinophils (%) (Auto) 0.9 % (0.4-6.7) Basophils (%) (Auto) 0.5 % (0.3-1.4) Nucleated RBC Relative Count (auto) 0.0 /100WBC Neutrophils # (Auto) 7.5 K/uL (2.0-7.4) Lymphocytes # (Auto) 1.6 K/uL (1.3-3.6) Monocytes # (Auto) 0.9 K/uL (0.3-1.0) Eosinophils # (Auto) 0.1 K/uL (0.0-0.5) Basophils # (Auto) 0.1 K/uL (0.0-0.1) Nucleated RBC Absolute Count (auto) 0.00 K/uL Glomerular Filtration Rate Calc > 60.0 Lactate 2.1 mmol/L (0.7-2.1) Calcium Level 9.8 mg/dl (8.4-10.2) Total Bilirubin 0.7 mg/dl (0.2-1.3) Aspartate Amino Transf (AST/SGOT) 24 U/L (0-35) Alanine Aminotransferase (ALT/SGPT) 42 U/L (0-56) Alkaline Phosphatase 79 U/L (0-126) Total Protein 6.8 g/dl (6.3-8.2) Albumin 3.9 g/dl (3.5-5.0) Lipase 51 U/L (23-300) Urine Color Straw Urine Clarity Clear Urine pH 7.0 pH (4.8-9.5) Urine Specific [place] 1.002 Urine Protein Negative mg/dL (NEGATIVE) Urine Glucose (UA) Negative mg/dL (NEGATIVE) Urine Ketones Negative mg/dL (NEGATIVE) Urine Blood Negative (NEGATIVE) Urine Nitrite Negative (NEGATIVE) Urine Bilirubin Negative (NEGATIVE) Urine Urobilinogen Negative mg/dL (0.2-1.9) Urine Leukocyte Esterase Negative (NEGATIVE) Urine RBC None /HPF (0-2/HPF) Urine WBC 2 /HPF (0-5/HPF) Urine Squamous Epithelial Cells Few /LPF (</=FEW) Urine Bacteria Negative /HPF (NONE-FEW) Urine Mucus None /HPF (NONE-FEW) Urinalysis Test 07/07/18 16:27 Urine Color Straw Urine Clarity Clear Urine pH 7.0 pH (4.8-9.5) Urine Specific [place] 1.002 Urine Protein Negative mg/dL (NEGATIVE) Urine Glucose (UA) Negative mg/dL (NEGATIVE) Urine Ketones Negative mg/dL (NEGATIVE) Urine Blood Negative (NEGATIVE) Urine Nitrite Negative (NEGATIVE) Urine Bilirubin Negative (NEGATIVE) Urine Urobilinogen Negative mg/dL (0.2-1.9) Urine Leukocyte Esterase Negative (NEGATIVE) Urine RBC None /HPF (0-2/HPF) Urine WBC 2 /HPF (0-5/HPF) Urine Squamous Epithelial Cells Few /LPF (</=FEW) Urine Bacteria Negative /HPF (NONE-FEW) Urine Mucus None /HPF (NONE-FEW) EKG/Imaging EKG Interpretation Test Reason : TREMULOUSNESS Blood Pressure : / mmHG Vent. Rate : 086 BPM Atrial Rate : 086 BPM P-R Int : 120 ms QRS Dur : 116 ms QT Int : 390 ms P-R-T Axes : 062 -28 056 degrees QTc Int : 466 ms Sinus rhythm with fusion complexes T wave abnormality, consider anterior ischemia Prolonged QT Abnormal ECG Large amount of artifact No previous ECGs available Confirmed by Scooter Salcido ([id number]) on 07/07/2018 9:57:06 PM Referred By: Confirmed By:Scooter Hernandez Imaging Location: [facility] - [place] Patient: Michelle Head : 1950 Visit/Account:[id number] Date of Sevice: 07/07/2018 EXAMINATION: Portable AP Chest HISTORY: Shortness of breath COMPARISON: 06/09/2018. FINDINGS: Borderline cardiac enlargement with normal pulmonary vascularity. Stable cardiomediastinal contours. No new focal consolidation or pleural effusion. No pneumothorax. No acute osseous findings. IMPRESSION: No evidence of acute cardiopulmonary disease. ED Course/Re-evaluation ED Course Patient is a 67-year-old female here with complaints of anxiety, tremulousness after taking tramadol. Patient was initially given 1 mg of Ativan which helped with the tremulousness however patient became neck and sedated, somnolent. Patient returned to baseline mental status shortly after this reaction.Labs are unremarkable. Patient was hemodynamically stable, well-appearing at time of discharge. Return precautions provided. Decision to Disposition Date: Jul 07, 2018 Decision to Disposition Time: 17:18 Depart Departure Latest Vital Signs Vital Signs Date Time Temp Pulse Resp B/P (MAP) Pulse Ox O2 Delivery O2 Flow Rate FiO2 07/07/18 16:49 84 16 92 07/07/18 16:00 121/75 (90) 07/07/18 15:44 Nasal Cannula 2 07/07/18 14:30 97.5 Impression: Primary Impression: Medication side effect Condition: Improved Disposition: HOME OR SELF-CARE Patient Instructions: Adverse Drug Reaction (GEN) Additional Instructions: Please discontinue your tramadol, doxycycline as these medications may have caused your reaction today. You may continue to take your prednisone until complete. Please follow-up with ear nose and throat as previously discussed. Please return immediately if you develop recurrent symptoms, rash, difficulty breathing, tremulousness. PARKER WICK DO Jul 07, 2018 14:21
--- NOTE | 2018-07-07 14:43 | EKG ---
FACILITY: [facility] - [place] PATIENT NAME: EMMA CABRERA : [id number] MR: [id number] V: [id number] EXAM DATE: ORDERING PHYSICIAN: PARKER WICK TECHNOLOGIST: Test Reason : TREMULOUSNESS Blood Pressure : / mmHG Vent. Rate : 086 BPM Atrial Rate : 086 BPM P-R Int : 120 ms QRS Dur : 116 ms QT Int : 390 ms P-R-T Axes : 062 -28 056 degrees QTc Int : 466 ms Sinus rhythm with fusion complexes T wave abnormality, consider anterior ischemia Prolonged QT Abnormal ECG Large amount of artifact No previous ECGs available Confirmed by Scooter Salcido ([id number]) on 07/07/2018 9:57:06 PM Referred By: Confirmed By:Scooter Hernandez
[2018-07-07 14:56] LABS: PLATELET COUNT, AUTOMATED 207 K/uL (150-450)
--- NOTE | 2018-07-07 15:25 | RADIOLOGY IMAGING REPORT ---
FACILITY: [facility] PATIENT NAME: Michelle Head : 1950 MR: [id number] V: [id number] EXAM DATE: ORDERING PHYSICIAN: PARKER WICK TECHNOLOGIST: Location: [facility] [place] Patient: Michelle Head : 1950 Visit/Account:[id number] Date of Sevice: 07/07/2018 EXAMINATION: Portable AP Chest HISTORY: Shortness of breath COMPARISON: 06/09/2018. FINDINGS: Borderline cardiac enlargement with normal pulmonary vascularity. Stable cardiomediastinal contours. No new focal consolidation or pleural effusion. No pneumothorax. No acute osseous findings. IMPRESSION: No evidence of acute cardiopulmonary disease. Report Dictated By: Christos Joy MD at 07/07/2018 3:17 PM Report E-Signed By: Christos Joy MD at 07/07/2018 3:21 PM WSN:[id number]
[2018-07-07 16:00] VITALS: BP 121/75
== END ==
LOC: EDBD 14:19 → ER 14:31 → MERGE 14:31
DX: T40.4X5A Adverse effect of other synthetic narcotics, initial encounter (principal)
CPT/HCPCS: 71045; 81001; 83605; 83690; 85025; 93005; 96361; 96374; 96375; 99284; J2060; J2405; J7030; 82040; 82247; 82310; 82374; 82435; 82565; 82947; 84075; 84132; 84155; 84295; 84450; 84460; 84520

== ENCOUNTER → 2018-07-07 | Outpatient (CLI) | payer SELFPAY ==
[~2018-07-07] MED LIST changes: -LORazepam 2 MG/ML VIAL IVP ONE; -NS(*) 0.9% 1000 ML BAG 1,000 ML IV ONE; -ONDANSETRON 4 MG/2 ML VIAL IVP ONE
== END ==
LOC: AMB 13:53 → MERGE 13:53
PROVIDERS: ATTEND Nurse Practitioner
DX: R51 Headache (principal); R06.00 Dyspnea, unspecified; I49.8 Other specified cardiac arrhythmias; R25.1 Tremor, unspecified; R53.1 Weakness
CPT/HCPCS: A0425; A0427

== ENCOUNTER → 2018-07-07 | Outpatient (CLI) | payer SELFPAY | LOC: AMB 17:35 → MERGE 17:35 | PROVIDERS: ATTEND Nurse Practitioner | DX: R09.02 Hypoxemia (principal) | CPT/HCPCS: A0425; A0428 ==

== ENCOUNTER 2018-07-10 12:17 | Emergency (ER) | payer SELFPAY ==
[2018-06-10 12:41] VITALS: Wt 117.9 kg
--- NOTE | 2018-07-10 12:31 | ER Report ---
History and Physical Time Seen By MD: 12:29 Hx. of Stated Complaint: patient reports feeling lightheaded and chest pain. started this morning HPI/ROS CHIEF COMPLAINT: Chest pain lightheaded HISTORY OF PRESENT ILLNESS: 67-year-old female this her 3rd visit in 3 days to the emergency department today she comes in with a complaint of chest pain intermittently comes and goes dull and aching no loosening relieving factors parasternal without radiation and then vague nonspecific numbness in her 1 hand pain and the other which is subsequently resolved no nausea no vomiting since she's had worsening shortness of breath has had shortness of breath for quite some time its worse recently normally on 2 L in with 3 L to go some medication interaction issues patient denies any recent falls or trauma and has orthopnea which is at her baseline REVIEW OF SYSTEMS: Respiratory: Shortness of breath Cardiovascular: Chest pain with palpitation Gastrointestinal: No vomiting, no abdominal pain. Musculoskeletal: No back pain. Remainder of the 14 system rev: Yes Allergies: Coded Allergies: Shellfish (Verified Allergy, Severe, THROAT SWELLING, EYE SWELLING, DIFFICULTY BREATHING, NAUSEA, 06/09/18) aspirin (Verified Allergy, Mild, NAUSEA, 06/09/18) Uncoded Allergies: POLIO VACCINE (Allergy, Intermediate, FEVER, NECK & ARM SWELLING, NAUSEA, 1 06/05/08) Home Meds Active Scripts Doxycycline Hyclate (DOXYCYCLINE HYCLATE) 100 Mg Tablet, 100 MG PO BID for 7 Days, #14 TAB Prov:PARKER WICK DO 07/05/18 Tramadol Hcl (TRAMADOL HCL) 50 Mg Tablet, 50 MG PO Q6H PRN for PAIN, #12 TAB 0 Refills Prov:PARKER WICK DO 07/05/18 Prednisone (PREDNISONE) 50 Mg Tablet, 50 MG PO QDAY for 4 Days, #4 TAB Prov:PARKER WICK DO 07/05/18 Reported Medications Omeprazole (OMEPRAZOLE) 20 Mg Capsule., 1 CAP PO QDAY, CAP 07/07/18 Discontinued Scripts Prednisone 10 Mg Tab (PREDNISONE 10 MG TAB) 10 Mg Tablet, 10 MG PO DIRECTED, #30 TAB Take 4 tab daily x 3 days, then 3 tab daily x 3 days, then 2 tab daily x 3 days, then 1 tab daily x 3 days. Prov:NOY LAURA DO 1/31/19 Oseltamivir Phosphate (TAMIFLU) 75 Mg Cap, 75 MG PO BID, #3 CAP Prov:NOY LAURA DO 06/13/18 Reviewed Nurses Notes: Yes Old Medical Records Reviewed: Yes Hx Smoking: Yes Smoking Status: Former Smoker Exposure to Second Hand Smoke?: No Hx Substance Use Disorder: No Hx Alcohol Use: No Constitutional Vital Sign - Last 24 Hours 07/10/18 07/10/18 12:22 12:32 Temp 97.9 Pulse 65 Resp 16 B/P (MAP) 149/90 Pulse Ox 92 O2 Delivery Room Air O2 Flow Rate 2.0 Physical Exam General Appearance: The patient is alert, has no immediate need for airway protection and no current signs of toxicity. [ ] Eyes: Pupils equal and round no injection. Respiratory: Chest is non tender, lungs are clear to auscultation. Cardiac: regular rate and rhythm [ ] Gastrointestinal: Abdomen is soft and non tender, no masses, bowel sounds normal. Musculoskeletal: Neck: Neck is supple and non tender. Extremities have full range of motion and are non tender. Skin: No rashes or lesions. [ ] DIFFERENTIAL DIAGNOSIS: After history and physical exam differential diagnosis was considered for myocardial infarction aortic dissection pulmonary embolus ammonia bronchitis stroke Medical Decision Making Data Points Result Diagram: 07/10/18 1239 07/10/18 1239 Laboratory Hematology Test 07/10/18 00:00 07/10/18 12:39 07/10/18 13:24 Blood Gas Puncture Site Right radial Blood Gas Patient Temperature 98.6 DEGREES Arterial Blood pH 7.42 (7.35-7.45) Arterial Blood Partial Pressure CO2 34 mmHg (32-37) Arterial Blood Partial Pressure O2 72 mmHg (60-80) Arterial Blood HCO3 22 mmol/L (20-26) Arterial Blood Oxygen Saturation 95 % (92-100) Arterial Blood Base Excess -2.0 mmol/L Robert Test Acceptable Oxygen Liters/Minute 28 Red Blood Count 4.79 M/uL (4.17-5.56) Mean Corpuscular Volume 93.1 fL (80.0-96.0) Mean Corpuscular Hemoglobin 31.1 pg (26.0-33.0) Mean Corpuscular Hemoglobin Concent 33.4 g/dL (32.0-36.0) Red Cell Distribution Width 14.4 % (11.5-14.5) Mean Platelet Volume 8.5 fL (7.2-11.1) Neutrophils (%) (Auto) 76.4 % (39.4-72.5) Lymphocytes (%) (Auto) 15.7 % (17.6-49.6) Monocytes (%) (Auto) 7.0 % (4.1-12.4) Eosinophils (%) (Auto) 0.1 % (0.4-6.7) Basophils (%) (Auto) 0.8 % (0.3-1.4) Nucleated RBC Relative Count (auto) 0.0 /100WBC Neutrophils # (Auto) 7.8 K/uL (2.0-7.4) Lymphocytes # (Auto) 1.6 K/uL (1.3-3.6) Monocytes # (Auto) 0.7 K/uL (0.3-1.0) Eosinophils # (Auto) 0.0 K/uL (0.0-0.5) Basophils # (Auto) 0.1 K/uL (0.0-0.1) Nucleated RBC Absolute Count (auto) 0.00 K/uL Peripheral Blood Smear Yes Y/N D-Dimer Quantitative (PE/DVT) 0.45 ug/ml (0-0.50) Sodium Level 137 mmol/L (137-145) Potassium Level 3.5 mmol/L (3.5-5.0) Chloride Level 104 mmol/L (98-107) Carbon Dioxide Level 24 mmol/L (22-31) Blood Urea Nitrogen 16 mg/dl (7-18) Creatinine 0.80 mg/dl (0.52-1.04) Glomerular Filtration Rate Calc > 60.0 Random Glucose 136 mg/dl (75-110) Calcium Level 9.5 mg/dl (8.4-10.2) Total Bilirubin 0.7 mg/dl (0.2-1.3) Aspartate Amino Transf (AST/SGOT) 20 U/L (0-35) Alanine Aminotransferase (ALT/SGPT) 37 U/L (0-56) Alkaline Phosphatase 75 U/L (0-126) Troponin I < 0.012 ng/ml Total Protein 6.8 g/dl (6.3-8.2) Albumin 3.9 g/dl (3.5-5.0) Influenza Virus Type A (PCR) Negative (NEGATIVE) Influenza Virus Type B (PCR) Negative (NEGATIVE) Chemistry Test 07/10/18 00:00 07/10/18 12:39 07/10/18 13:24 Blood Gas Puncture Site Right radial Blood Gas Patient Temperature 98.6 DEGREES Arterial Blood pH 7.42 (7.35-7.45) Arterial Blood Partial Pressure CO2 34 mmHg (32-37) Arterial Blood Partial Pressure O2 72 mmHg (60-80) Arterial Blood HCO3 22 mmol/L (20-26) Arterial Blood Oxygen Saturation 95 % (92-100) Arterial Blood Base Excess -2.0 mmol/L Robert Test Acceptable Oxygen Liters/Minute 28 White Blood Count 10.2 k/uL (4.5-11.0) Red Blood Count 4.79 M/uL (4.17-5.56) Hemoglobin 14.9 g/dL (12.0-16.0) Hematocrit 44.6 % (34.0-47.0) Mean Corpuscular Volume 93.1 fL (80.0-96.0) Mean Corpuscular Hemoglobin 31.1 pg (26.0-33.0) Mean Corpuscular Hemoglobin Concent 33.4 g/dL (32.0-36.0) Red Cell Distribution Width 14.4 % (11.5-14.5) Platelet Count 202 K/uL (150-450) Mean Platelet Volume 8.5 fL (7.2-11.1) Neutrophils (%) (Auto) 76.4 % (39.4-72.5) Lymphocytes (%) (Auto) 15.7 % (17.6-49.6) Monocytes (%) (Auto) 7.0 % (4.1-12.4) Eosinophils (%) (Auto) 0.1 % (0.4-6.7) Basophils (%) (Auto) 0.8 % (0.3-1.4) Nucleated RBC Relative Count (auto) 0.0 /100WBC Neutrophils # (Auto) 7.8 K/uL (2.0-7.4) Lymphocytes # (Auto) 1.6 K/uL (1.3-3.6) Monocytes # (Auto) 0.7 K/uL (0.3-1.0) Eosinophils # (Auto) 0.0 K/uL (0.0-0.5) Basophils # (Auto) 0.1 K/uL (0.0-0.1) Nucleated RBC Absolute Count (auto) 0.00 K/uL Peripheral Blood Smear Yes Y/N D-Dimer Quantitative (PE/DVT) 0.45 ug/ml (0-0.50) Glomerular Filtration Rate Calc > 60.0 Calcium Level 9.5 mg/dl (8.4-10.2) Total Bilirubin 0.7 mg/dl (0.2-1.3) Aspartate Amino Transf (AST/SGOT) 20 U/L (0-35) Alanine Aminotransferase (ALT/SGPT) 37 U/L (0-56) Alkaline Phosphatase 75 U/L (0-126) Troponin I < 0.012 ng/ml Total Protein 6.8 g/dl (6.3-8.2) Albumin 3.9 g/dl (3.5-5.0) Influenza Virus Type A (PCR) Negative (NEGATIVE) Influenza Virus Type B (PCR) Negative (NEGATIVE) Coagulation Test 07/10/18 12:39 D-Dimer Quantitative (PE/DVT) 0.45 ug/ml ED Course/Re-evaluation ED Course ED course 67 year old female vague nonspecific complaints other than chest pain cardiac markers and EKG chest x-ray pulmonary workup all negative D dimer is negative influenza negative chest x-ray head CT also negative no abnormalities on her labs of any clinical significance will discharge diagnosis chest pain Decision to Disposition Date: Jul 10, 2018 Decision to Disposition Time: 14:08 Depart Departure Latest Vital Signs Vital Signs Date Time Temp Pulse Resp B/P (MAP) Pulse Ox O2 Delivery O2 Flow Rate FiO2 07/10/18 12:32 2.0 07/10/18 12:22 97.9 65 16 149/90 92 Room Air Impression: Primary Impression: Chest pain Condition: Condition Unchanged Disposition: HOME OR SELF-CARE Referrals: ANA SOW 5 Days Patient Instructions: Chest Pain (DC) NAKUL BOWDEN MD Jul 10, 2018 12:31
[2018-07-10 12:51] LABS: PLATELET COUNT, AUTOMATED 202 K/uL (150-450)
--- NOTE | 2018-07-10 13:06 | EKG ---
FACILITY: [facility] - [place] PATIENT NAME: EMMA CABRERA : [id number] MR: [id number] V: [id number] EXAM DATE: ORDERING PHYSICIAN: NAKUL BOWDEN TECHNOLOGIST: JUAN Test Reason : CP Blood Pressure : / mmHG Vent. Rate : 075 BPM Atrial Rate : 075 BPM P-R Int : 136 ms QRS Dur : 092 ms QT Int : 382 ms P-R-T Axes : 051 -34 019 degrees QTc Int : 426 ms Sinus rhythm with PVC Left axis deviation Nonspecific interventricular conduction delay Abnormal ECG Confirmed by LISE WYNNE ([id number]) on 07/10/2018 5:22:37 PM Referred By: KAL Confirmed By:LISE WYNNE
--- NOTE | 2018-07-10 13:21 | RADIOLOGY IMAGING REPORT ---
FACILITY: [facility] PATIENT NAME: Michelle Head : 1950 MR: [id number] V: [id number] EXAM DATE: ORDERING PHYSICIAN: NAKUL BOWDEN TECHNOLOGIST: [place] [facility] [place] : 1950 Visit/Account:[id number] Date of Sevice: 07/10/2018 Exam type: CHEST PA LAT History: Chest pain and shortness of breath Comparison: June 09, 2018. Findings: The lungs are free of acute effusions, infiltrates or edema. The cardiac silhouette is mildly enlarg ed but unchanged. The trachea is in midline. There are mild spondylotic changes of the thoracic spi ne. IMPRESSION: 1. Myocardial megaly unchanged No evidence of acute pulmonary consolidation Report Dictated By: Gloria Riley MD at 07/10/2018 1:14 PM Report E-Signed By: Gloria Riley MD at 07/10/2018 1:16 PM WSN:[id number]
--- NOTE | 2018-07-10 13:59 | RADIOLOGY IMAGING REPORT ---
[place] [facility] [place] NAME: Michelle Head : 1950 MR: [id number] V: [id number] EXAM DATE: ORDERING PHYSICIAN: NAKUL BOWDEN TECHNOLOGIST: Location: [facility] [place] Patient: Michelle Head : 1950 Visit/Account:[id number] Date of Sevice: 07/10/2018 Study: CT scan of the brain without intravenous contrast. Indication: Numbness, lightheadedness Comparison study: June 09, 2018 Technique: Multiple axial images were obtained through the brain without the use of intravenous contr ast. One of the following dose optimization techniques was utilized in the performance of this exam: Autom ated exposure control; adjustment of the mA and/or kV according to the patient's size; or use of an i terative reconstruction technique. Specific details can be referenced in the facility's radiology C T exam operational policy. The examination demonstrates no evidence of acute intracranial hemorrhage. There is no evidence of ex tra-axial collection or hydrocephalus. There is no abnormal density identified within the brain parenchyma. There is no evidence of disruption of the peripheral luna-white junction. The bony structures are unremarkable. IMPRESSION:Unremarkable CT scan of the brain without contrast. Report Dictated By: Chirag Patel at 07/10/2018 1:52 PM Report E-Signed By: Chirag Patel at 07/10/2018 1:55 PM WSN:[email or web address]
[2018-07-10 14:00] VITALS: BP 126/78
== END 2018-07-10 14:21 | disposition home or self-care (01) ==
LOC: ER 12:36
DX: R07.9 Chest pain, unspecified (principal)
CPT/HCPCS: 36600; 70450; 71046; 82040; 82247; 82310; 82374; 82435; 82565; 82803; 82947; 84075; 84132; 84155; 84295; 84450; 84460; 84484; 84520; 85025; 85379; 87502; 93005; 99284